=== PATIENT | female | born 1945 | race Caucasian/White ===

== ENCOUNTER → 2017-03-12 | Outpatient (CLI) | payer OTHER ==
[~2017-03-12] MED LIST: ACET-1311 PO; ALBUAER19 INH; AMB5 PO; ATV5 PO; CHOL100010 PO; DIGO0.122 PO; FRS/40 PO; METO100T14 PO; PANT40TA PO; POTA-335 PO; SYN25 PO; WARF2TAB PO
[2017-03-12 17:30] LABS: BASO % 0.8 %; BASO ABS # 0.05 K/uL (0-0.2); COMPLETE YES; EOS % 2.8 %; HEMATOCRIT 44.4 % (37-47); IG% 0.2 %; LYMPH % 21.3 %; LYMPH ABS # 1.39 K/uL (1.2-3.4); MEAN CELL VOLUME 86.5 fL (80-100); MEAN CORPUSCULAR HEMOGLOBIN 28.1 pg (25-34); MEAN CORPUSCULAR HGB CONC 32.4 g/dl (32-36); MEAN PLATELET VOLUME 10.4 fL (7.4-10.4); MONO % 12.3 %; NEUT % 62.6 %; PLATELET COUNT 182 K/uL (130-400); RED BLOOD COUNT 5.13 M/uL (4.2-5.4); WHITE BLOOD COUNT 6.52 K/uL (4.8-10.8)
[2017-03-12 17:45] LABS: ALT/SGPT 19 U/L (12-78); BLOOD UREA NITROGEN 14 mg/dl (7-18); BUN/CREATININE RATIO 14.5 (10-20); CALCIUM 9.6 mg/dl (8.5-10.1); CARBON DIOXIDE 30 mmol/L (21-32); CHLORIDE 102 mmol/L (98-107); CHOLESTEROL 184 mg/dl (0-200); CREATININE 0.97 mg/dl (0.60-1.20); GLUCOSE 115 mg/dl (70-99); SODIUM 137 mmol/L (136-145); TRIGLYCERIDES 146 mg/dl (0-150); VERY LOW DENSITY LIPOPROT CALC 29 mg/dl
[2017-03-12 17:55] LABS: ALB/GLOB RATIO 1.1 (0.9-2); ALKALINE PHOSPHATASE 65 U/L (45-117); AST/SGOT 24 U/L (15-37); CHOLESTEROL/HDL RATIO 3.5; HDL CHOLESTEROL 52 mg/dl; LDL CHOLESTEROL CALCULATED 103 mg/dl
== END | disposition home or self-care (01) ==
LOC: C.LABBFT 11:44
PROVIDERS: ATTEND Internal Medicine
DX: Z00.00 Encounter for general adult medical examination without abnormal findings (principal); I10 Essential (primary) hypertension; E78.5 Hyperlipidemia, unspecified; E03.9 Hypothyroidism, unspecified

== ENCOUNTER → 2017-06-23 | Outpatient (CLI) | payer OTHER ==
--- NOTE | 2017-06-23 18:19 | DIAGNOSTIC IMAGING REPORT ---
RIGHT TIBIA AND FIBULA 2 VIEWS CLINICAL HISTORY: Right leg pain. Fall. FINDINGS: AP and crosstable lateral views of the right tibia and fibula are obtained. No prior studies are available for comparison at the time of dictation. The skeletal structures are osteopenic. There is no radiographic evidence of right tibial or fibular fracture. The knee and ankle joints are grossly maintained. Mild proximal pretibial soft tissue edema is noted. Small phleboliths are noted in the marquis. IMPRESSION: Soft tissue swelling with no radiographic evidence of right tibial or fibular fracture. Electronically signed by: Emiliano Olmstead M.D. 06/23/2017 6:17 PM Dictated Date/Time: 06/23/2017 6:16 PM
--- NOTE | 2017-06-23 18:20 | DIAGNOSTIC IMAGING REPORT ---
RIGHT KNEE 3 VIEWS CLINICAL HISTORY: Right knee injury. FINDINGS: AP, crosstable lateral, and sunrise views of the right knee are obtained. No prior studies are available for comparison at the time of dictation. The skeletal structures are osteopenic. There is no radiographic evidence of fracture. Mild tricompartmental degenerative joint space narrowing is noted, greatest in the medial and patellofemoral compartments. There are small patellar enthesophytes and marginal osteophytes. A small joint effusion is identified. Prepatellar soft tissue edema is noted. IMPRESSION: 1. Mild soft tissue swelling and small joint effusion. No fracture is seen. 2. Osteopenia and degenerative change as above. Electronically signed by: Emiliano Olmstead M.D. 06/23/2017 6:19 PM Dictated Date/Time: 06/23/2017 6:17 PM
== END | disposition home or self-care (01) ==
LOC: C.RAD 17:37
PROVIDERS: ATTEND Internal Medicine
DX: M79.604 Pain in right leg (principal); Z91.81 History of falling; S89.91XA Unspecified injury of right lower leg, initial encounter; X58.XXXA Exposure to other specified factors, initial encounter; M25.461 Effusion, right knee; M85.88 Other specified disorders of bone density and structure, other site; M17.11 Unilateral primary osteoarthritis, right knee

== ENCOUNTER 2022-07-05 09:07 | Observation (INO) ==
--- NOTE | 2022-05-24 14:21 | PAT Medication Instructions ---
Medication Instructions Date of Service May 24, 2022 Home Medications Medication Instructions Recorded promethazine 25 mg tablet 25 mg PO TID PRN nausea and 12/04/20 vomiting #30 tabs [id number]-vwgdzmcb See Rx Instructions PO Q8H PRN 12/14/20 50 mg-300 mg-40 mg capsule pain #10 Tabs (Fioricet) albuterol sulfate 90 mcg/actuation 2 puff inhalation Q4H PRN 01/23/21 aerosol inhaler (Ventolin HFA) shortness of breath #8.5 grams benzonatate 100 mg capsule 100 mg PO HS PRN cough #90 caps 01/23/21 (Tessalon Perlrufina) metoprolol tartrate 50 mg tablet 50 mg PO BID #180 tabs 06/18/21 pantoprazole 40 mg tablet,delayed 40 mg PO QAM #90 tabs 09/04/21 release levothyroxine 25 mcg tablet 25 mcg PO QAM #90 tabs 09/14/21 alendronate 70 mg tablet (Fosamax) 70 mg PO WEEKLY #12 tabs 10/08/21 diltiazem HCl 240 mg 240 mg PO QAM #90 caps 11/23/21 capsule,extended release 24 hr (Cartia XT) zolpidem 10 mg tablet 10 mg PO HS PRN insomnia #30 tabs 02/06/22 topiramate 50 mg tablet 50 mg PO HS #90 tabs 02/13/22 diclofenac sodium 1 % topical gel 4 g topical QID #100 grams 02/27/22 warfarin 2 mg tablet 2 mg PO DAILY #100 tabs 04/11/22 Medications aspirin 81 mg tablet,delayed release 81 mg PO QAM cholecalciferol (vitamin D3) 25 mcg (1,000 unit) capsule 1,000 units PO QAM estradiol 0.01% (0.1 mg/gram) vaginal cream (Estrace) 1 g vaginal 2XWK PRN promethazine 25 mg tablet 25 mg PO TID PRN nausea and vomiting giqeqjkqww-igvijprfqzmgz-vqymvlxp 50 mg-300 mg-40 mg capsule (Fioricet) See Rx Instructions PO Q8H PRN pain albuterol sulfate 90 mcg/actuation aerosol inhaler (Ventolin HFA) 2 puff inhalation Q4H PRN shortness of breath benzonatate 100 mg capsule (Tessalon Perles) 100 mg PO HS PRN cough metoprolol tartrate 50 mg tablet 50 mg PO BID pantoprazole 40 mg tablet,delayed release 40 mg PO QAM levothyroxine 25 mcg tablet 25 mcg PO QAM alendronate 70 mg tablet (Fosamax) 70 mg PO WEEKLY diltiazem HCl 240 mg capsule,extended release 24 hr (Cartia XT) 240 mg PO QAM zolpidem 10 mg tablet 10 mg PO HS PRN insomnia topiramate 50 mg tablet 50 mg PO HS diclofenac sodium 1 % topical gel 4 g topical QID warfarin 2 mg tablet 2 mg PO ZULEYKA escitalopram oxalate 5 mg tablet 5 mg PO QAM fluticasone propionate 50 mcg/actuation nasal spray,suspension (Flonase Allergy Relief) 1 spray intranasal BID PRN Nasal Congestion furosemide 40 mg tablet 60 mg PO QAM mirabegron 50 mg tablet,extended release 24 hr (Myrbetriq) 50 mg PO QAM potassium chloride 20 mEq tablet,extended release 20 meq PO QAM pseudoephedrine HCl 120 mg tablet,extended release (Sudafed 12 Hour) 120 mg PO BID PRN Nasal Congestion Continue as directed estradiol 0.01% (0.1 mg/gram) vaginal cream (Estrace) 1 g vaginal 2XWK PRN fluticasone propionate 50 mcg/actuation nasal spray,suspension (Flonase Allergy Relief) 1 spray intranasal BID PRN Nasal Congestion albuterol sulfate 90 mcg/actuation aerosol inhaler (Ventolin HFA) 2 puff inhalation Q4H PRN shortness of breath alendronate 70 mg tablet (Fosamax) 70 mg PO WEEKLY ASK your prescriber and surgeon aspirin 81 mg tablet,delayed release 81 mg PO QAM warfarin 2 mg tablet 2 mg PO DAILY DO NOT take the morning of surgery cholecalciferol (vitamin D3) 25 mcg (1,000 unit) capsule 1,000 units PO QAM potassium chloride 20 mEq tablet,extended release 20 meq PO QAM furosemide 40 mg tablet 60 mg PO QAM promethazine 25 mg tablet 25 mg PO TID PRN nausea and vomiting diclofenac sodium 1 % topical gel 4 g topical QID (do not use AM of surgery) benzonatate 100 mg capsule (Tessalon Perles) 100 mg PO HS PRN cough mirabegron 50 mg tablet,extended release 24 hr (Myrbetriq) 50 mg PO QAM pseudoephedrine HCl 120 mg tablet,extended release (Sudafed 12 Hour) 120 mg PO BID PRN Nasal Congestion Take morning of surgery With a small sip of water, OTHERWISE NOTHING TO EAT OR DRINK AFTER MIDNIGHT: metoprolol tartrate 50 mg tablet 50 mg PO BID pantoprazole 40 mg tablet,delayed release 40 mg PO QAM escitalopram oxalate 5 mg tablet 5 mg PO QAM levothyroxine 25 mcg tablet 25 mcg PO QAM diltiazem HCl 240 mg capsule,extended release 24 hr (Cartia XT) 240 mg PO QAM icapvibrlx-nxgncyvbscwea-nhlfgebi 50 mg-300 mg-40 mg capsule (Fioricet) See Rx Instructions PO Q8H PRN pain (if needed) albuterol sulfate 90 mcg/actuation aerosol inhaler (Ventolin HFA) 2 puff inhalation Q4H PRN shortness of breath (use if needed AM of surgery and bring to hospital) Take evening before surgery metoprolol tartrate 50 mg tablet 50 mg PO BID zolpidem 10 mg tablet 10 mg PO HS PRN insomnia topiramate 50 mg tablet 50 mg PO HS promethazine 25 mg tablet 25 mg PO TID PRN nausea and vomiting (if needed) benzonatate 100 mg capsule (Tessalon Perles) 100 mg PO HS PRN cough (if needed) pseudoephedrine HCl 120 mg tablet,extended release (Sudafed 12 Hour) 120 mg PO BID PRN Nasal Congestion (if needed) Other Notes If you have any questions please call us at [phone] or [phone] or [phone] or [phone]
--- NOTE | 2022-06-11 14:28 | Anesthesiology Consultation ---
Date of Service June 11, 2022 Assessment & Plan (1) Encounter for pre-operative examination: - Check coags AM DOS (warfarin instructions per surgeon/prescriber) - COVID screening: Per assessment on 06/11: No known COVID-19 positive contacts or current COVID-19 related symptoms. Travel screen negative. Patient vaccinated. At surgeon discretion if preop Covid testing being done. - Outpatient joint assessment: Pt currently scheduled for inpatient pathway. If surgeon requests review for outpatient joint pathway, patient is not recommended candidate for outpatient joint program from anesthesia standpoint. - Cardiology office visit (12/24/21): "Atrial fibrillation:Plan:--Persistent, asymptomatic, well rate controlled, last event monitor 09/2018 2. History of Rheumatic heart disease status post mechanical AVR, MVR-- functioning appropriately on most recent TTE 2021, on anticoagulation (INR 2.5-3.5) 3. RBBB 4. Hypertension-- well controlled on current regimen. 5. Chronic diastolic heart failure.. Doing well from a cardiac standpoint. Active without significant chest pain or limiting dyspnea. On exam today no signs of heart failure or new PVD. Remains in rate controlled atrial fibrillation. Aortic, mitral mechanical valves well-functioning on most recent echo 04/2021.. Plan to continue anticoagulation with warfarin followed by our office. Continue ASA. Continue diltiazem, metoprolol and current maintenance Lasix 40 mg daily (60mg for increased edema). Follow-up in 1 year" Chart Review Chart Review: Acceptable Risk for Surgery (pending evaluation AM DOS) and Patient seen in Pre Admission Testing Teaching & Discussion Pre-Anesthesia Teaching/Discussion Notes: Instructed NPO after midnight before surgery,except medications with 15 cc of water. Medication instructions provided according to the PAT guidelines. History Surgery Operation Date: 07/05/22 07:00 Proposed Procedures p Right Total Knee Arthroplasty - Fredo Stringer, Height/Weight Height: 5 ft 4 in Weight: 76.9 kg Allergies Allergy/AdvReac Type Severity Reaction Status Date / Time trazodone AdvReac Intermediate Nightmares Verified 06/11/22 14:34 Medications Home Medications Medication Instructions Recorded Confirmed Last Taken aspirin 81 mg tablet,delayed 81 mg PO QAM 09/08/20 05/24/22 09/19/20 release cholecalciferol (vitamin D3) 25 1,000 units PO QAM 09/08/20 05/24/22 09/19/20 mcg (1,000 unit) capsule estradiol 0.01% (0.1 mg/gram) 1 g vaginal 2XWK PRN Vaginal 09/08/20 05/24/22 Unknown vaginal cream (Estrace) Dryness promethazine 25 mg tablet 25 mg PO TID PRN nausea and 12/04/20 05/24/22 Unknown vomiting #30 tabs geiobybdir-hlerzcnvcyuba-dssjuoyh See Rx Instructions PO Q8H PRN 12/14/20 05/24/22 Unknown 50 mg-300 mg-40 mg capsule pain #10 Tabs (Fioricet) albuterol sulfate 90 mcg/actuation 2 puff inhalation Q4H PRN 01/23/21 05/24/22 Unknown aerosol inhaler (Ventolin HFA) shortness of breath #8.5 grams benzonatate 100 mg capsule 100 mg PO HS PRN cough #90 caps 01/23/21 05/24/22 Unknown (Brittani Felix) metoprolol tartrate 50 mg tablet 50 mg PO BID #180 tabs 06/18/21 05/24/22 Unknown levothyroxine 25 mcg tablet 25 mcg PO QAM #90 tabs 09/14/21 05/24/22 Unknown alendronate 70 mg tablet (Fosamax) 70 mg PO WEEKLY #12 tabs 10/08/21 05/24/22 Unknown diltiazem HCl 240 mg 240 mg PO QAM #90 caps 11/23/21 05/24/22 Unknown capsule,extended release 24 hr (Cartia XT) zolpidem 10 mg tablet 10 mg PO HS PRN insomnia #30 tabs 02/06/22 05/24/22 Unknown topiramate 50 mg tablet 50 mg PO HS #90 tabs 02/13/22 05/24/22 Unknown diclofenac sodium 1 % topical gel 4 g topical QID #100 grams 02/27/22 05/24/22 Unknown warfarin 2 mg tablet 2 mg PO DAILY #100 tabs 04/11/22 06/04/22 Unknown escitalopram oxalate 5 mg tablet 5 mg PO QAM 05/24/22 05/24/22 Unknown fluticasone propionate 50 1 spray intranasal BID PRN Nasal 05/24/22 05/24/22 U nknown mcg/actuation nasal Congestion spray,suspension (Flonase Allergy Relief) furosemide 40 mg tablet 60 mg PO QAM 05/24/22 05/24/22 Unknown mirabegron 50 mg tablet,extended 50 mg PO QAM 05/24/22 05/24/22 Unknown release 24 hr (Myrbetriq) potassium chloride 20 mEq 20 meq PO QAM 05/24/22 05/24/22 Unknown tablet,extended release pseudoephedrine HCl 120 mg 120 mg PO BID PRN Nasal Congestion 05/24/22 05/24/22 Unknown tablet,extended release (Sudafed 12 Hour) pantoprazole 40 mg tablet,delayed 40 mg PO DAILY #90 tabs 05/28/22 Unknown release Past Medical History Medical History Atrial fibrillation Follows with Dr. Diaz Chronic migraine Chronic sinusitis Depression Diastolic heart failure Genitourinary syndrome of menopause GERD (gastroesophageal reflux disease) History of COVID-19 02/2021- mild symptoms, resolved Hyperlipidemia Hypertension Hypothyroidism Impaired fasting glucose Insomnia Mixed incontinence urge and stress Obstructive sleep apnea Osteoarthritis of right knee Osteoporosis Peripheral neuropathy Rheumatic heart disease s/p [facility] AVR/MVR (2011) Exercise / Class Metabolic Activity III < 4 Walking/Shop/Light housework Past Family History Family History Mother Atrial fibrillation Father Myocardial infarction Grandfather (Maternal) Colorectal cancer Sister Lung cancer Other No family history of adverse response to anesthesia Denies family history of Ovarian cancer Prostate cancer Diabetes Breast cancer Past Surgical History Surgical History History of bilateral tubal ligation History of cardiac cath 2011 > no stents History of cardioversion x2 History of cataract surgery B/L History of colonoscopy History of esophagogastroduodenoscopy (EGD) Hx of hemorrhoidectomy S/P aortic valve replacement (2011) S/P MVR (mitral valve replacement) (2011) Status post arthroscopic partial medial meniscectomy right knee Past Anesthesia History No Hx of Anesthesia Complications and No Family Hx of Anesthesia Complications History of PONV No Hx of PONV and No Hx of Motion Sickness Social History Smoking Status: Never smoker Do You Dip or Chew Tobacco: No Hx Alcohol Use: No Hx Substance Use: No substance use type: does not use Review of Systems Patient denies chest pain, shortness of breath, fever, chills, cough, wheezing, palpitations. Physical Exam Vital Signs VITALS BP 112/51 P 53 TEMP 97.6 SP02 95%RA RESP 18 PHYSICAL Full cervical extension range of motion. Full TMJ range of motion. TMD 3.5 finger breaths Mallampati Score 1 Dentition: edentulous, upper plate Lungs: clear throughout to auscultation Cardiac: regular rate and rhythm, + click Spine: + scoliosis Carotid arteries: negative bruit Extremities: no edema Lab Results Anesthesia Preop Results Results Anesthesia Widget: WBC 6.59 K/ul (4.8-10.8) 06/11/22 Hgb 14.6 g/dl (12.0-16.0) 06/11/22 Hct 44.8 % (37.0-47.0) 06/11/22 Plt 228 K/uL (130-400) 06/11/22 Na 137 mmol/L (136-145) 06/11/22 K 4.2 mmol/L (3.5-5.1) 06/11/22 Cl 104 mmol/L (98-107) 06/11/22 CO2 25 mmol/L (21-32) 06/11/22 BUN 14 mg/dl (6-23) 06/11/22 Creat 1.25 mg/dl (0.6-1.2) H 06/11/22 Glucose Level 117 mg/dl (70-99(Fasting)) H 06/11/22 PT 30.3 Seconds (9.0-12.0) H 06/11/22 PTT 40.7 Seconds (21.0-31.0) H 06/11/22 INR 3.0 (0.9-1.1) H 06/11/22 Blood Type A Negative 06/11/22 Antibody Screen NEGATIVE 06/11/22 Testing Electrocardiogram Date: 06/11/22 A fib with slow ventricular response at 45bpm. RBBB. Chest X-Ray Date: 06/11/22 FINDINGS: Median sternotomy wires are unchanged. Mitral and aortic valvular prostheses noted. Calcified aortic knob is seen. The lungs are clear. No evidence of pleural effusion or pneumothorax. IMPRESSION: No acute chest disease. Echocardiogram Date: 04/29/21 EF 50-55%. No regional motion abnormality. Mildly dilated RV with borderline reduced function. Mechanical AV with expected transvalvular gradients. Trace AI. Mechanical MV with expected transvalvular gradients. Trace MR. Compared with prior study 11/09/2018, no significant changes per report. COVID-19 Risk Screen Screening Information COVID-19 Screen Date: 06/11/22 Exposure 21 Days Family/Household +COVID Last 21 Days: No Exposure 10 Days Any COVID Exposure Last 10 Days: No Symptoms Last 10 Days Experienced COVID Sx Last 10 Days: No + COVID 0-90 Days COVID + in Last 0-90 Days: No
[~2022-07-05 09:07] MED LIST changes: -ACET-1311 PO; +ACETAMINOPHEN 500 MG TAB PO SCH; -ALBUAER19 INH; -AMB5 PO; -ATV5 PO; +BUPIVACAINE 0.5 % 5 MG/1 ML PF 10ML VIAL ONE; -CHOL100010 PO; -DIGO0.122 PO; +EPINEPHrine INJ 1 MG/ML AMP ONE; +FAMOTIDINE 20 MG TAB PO SCH; -FRS/40 PO; +GABAPENTIN 300 MG CAP PO SCH; +LR 15ML/HR IV SCH; +LR 60ML/HR IV SCH; -METO100T14 PO; +ORTHO JOINT MIX INFIL SCH; -PANT40TA PO; -POTA-335 PO; +ROPIVACAINE 0.5% 5 MG/ML 30 ML VIAL ONE; -SYN25 PO; +TRANEXAMIC ACID 1,000 MG **IV Intra-op IV SCH; +TRANEXAMIC ACID 1,000 MG **IV Pre-op IV SCH; -WARF2TAB PO; +ceFAZolin 2000MG 2,000 MG/15 ML SYR IV SCH; +dexAMETHasone 4 MG TAB PO SCH
[2022-07-05] MEDS ORDERED: fentaNYL citrate PF 100 MCG/2 ML VIAL ONE (10:35)
[2022-07-05] MEDS ORDERED: MIDAZOLAM HCL 1 MG/ML 2ML VIAL ONE (10:35)
[2022-07-05] MEDS ORDERED: PROPOFOL IV EMULSION 10 MG/ML 20 ML VIAL IV ONE ×3 (10:36)
--- NOTE | 2022-07-05 10:36 | History & Physical Bridge Note ---
Date of Service July 05, 2022 History & Physical Bridge Note I have examined the patient, reviewed the History & Physical and in the interval since the performance of the History & Physical I have noted the following changes of clinical significance: no changes noted
[2022-07-05 10:53] LABS: INR 1.2 (0.9-1.1); Partial Thromboplastin Time 28.7 Seconds (21.0-31.0); Prothrombin Time 12.4 Seconds (9.0-12.0)
[2022-07-05] MEDS ORDERED: ORTHO JOINT ANESTHETIC ONE (11:10)
[2022-07-05] MEDS ORDERED: LIDOCAINE 2% MPF LOCAL 5 ML VIAL ONE (11:51)
[2022-07-05] MEDS ORDERED: ePHEDrine sulfate 50 MG/ML AMP IV PRN (11:58)
[2022-07-05] MEDS ORDERED: ATROPINE SULFATE 0.1 MG/ML 10ML SYR IV PRN (11:58)
[2022-07-05] MEDS ORDERED: fentaNYL citrate PF 100 MCG/2 ML VIAL IV PRN (11:58)
[2022-07-05] MEDS ORDERED: HYDROmorphone INJ 1 MG/ML SYRINGE IV PRN (11:58)
[2022-07-05] MEDS ORDERED: ONDANSETRON INJ 2 MG/ML 2 ML VIAL IV PRN ×2 (11:58→14:43)
[2022-07-05] MEDS ORDERED: ePHEDrine sulfate 50 MG/ML AMP ONE ×2 (12:58)
--- NOTE | 2022-07-05 13:01 | Operative Report ---
PG Post Operative Report Pre & Post Diagnosis Operation Date: 07/05/22 11:45 Pre-Op Diagnosis: Right Knee Degenerative Joint Disease Post-Op Diagnosis: Right Knee Degenerative Joint Disease I identified the patient and participated in the time-out.: Yes Procedure Operation Date: 07/05/22 11:45 Actual Procedures p Right Total Knee Arthroplasty(Right) - Fredo Stringer DO Surgeon Fredo Stringer DO Reiki Practitioner Arben Shelley PA-C Estimated Blood Loss 30 Findings Consistent with Post-Op Diagnosis Specimens Right femoral and tibial bone Description of Procedure Implants used: I used a Gonzales Persona total knee arthroplasty system with a size 6 narrow femur, D tibia, 28 oval patella, and a size 11 medial congruent polyethylene bearing. All components were cemented in place with Biomet cement. Ann arrived [facility] for the above procedure. She was seen in the preoperative holding area and the operative extremity was identified and signed. She was given a preoperative antibiotic, TXA, a spinal anesthetic and an adductor nerve block. She was taken back to the operating room and laid on the table in supine position. She was given basic sedation. The operative knee was then prepped and draped in sterile fashion. A timeout was done, and the patient and the operative extremity was properly identified. A midline incision was made directly over the patella. Dissection was taken down to the extensor mechanism. A midvastus arthrotomy was used. The medial retinaculum was released and the fat pad was mostly excised. The knee was flexed and the ACL, PCL, and meniscus were removed. A drill was sent down the center of the femoral canal followed by an intramedullary elvis. Off that elvis a distal femoral cutting block was placed. 9 mm was resected off the distal femur at 5 of valgus. A posterior referencing AP sizing guide was then placed on the distal femur. The femur measured to be a size 6. 2 drill holes were placed in 3 of external rotation. A 4-in-1 cutting block was then impacted into place. Anterior, posterior, and chamfer cuts were then made. The proximal tibia was then exposed. An external tibial alignment guide was placed. A tibial cut guide was then anchored in place and the proximal tibia was then resected. The posterior aspect of the knee was then opened up and any additional meniscus fragments and osteophytes were removed. The tibia measured to be a size D. The tibial plate was then placed in the appropriate rotation and the tibia was drilled and punched. Trial components were then placed. I used a size 11 medial congruent polyethylene insert. The knee was brought through a full range of motion and felt to be stable. The peg holes for the femoral component were then drilled. The patella was then everted and 9 mm was resected off the posterior aspect of the patella. The patella measured to be a size 28 oval. 3 peg holes were then drilled. A trial patella was placed. The knee was once again brought through a full range of motion and felt to be stable. Trial components were then removed. The surrounding soft tissues were injected with 100 cc of an orthopedic pain control cocktail. All components were then cemented into place with Biomet cement. The final polyethylene insert was then snapped into place. Once cement was dry the tourniquet was deflated. Hemostasis was obtained. A dilute betadyne lavage was then done for 3 minutes. The joint was then irrigated with normal saline solution. The midvastus arth rotomy was then closed with #1 Vicryl suture. The skin was closed with 2-0 Vicryl, 3-0V lock suture, and deedee. A soft compressive dressing was placed. She was then transferred to a hospital bed and taken to the postanesthesia care unit in stable condition. She tolerated the procedure well. Arben Shelley PA-C, was present for the entire procedure. He was critical for patient positioning, prepping, draping, retraction exposure, wound closure and application of sterile dressing. I attest to the content of the Intraoperative Record and any orders documented therein. Any exceptions are noted below.
[2022-07-05] MEDS ORDERED: ONDANSETRON INJ 2 MG/ML 2 ML VIAL ONE (13:17)
--- NOTE | 2022-07-05 13:57 | XRay Report ---
XR knee RT 1 or 2V routine CLINICAL HISTORY: Surgical Post Op COMPARISON: Knee radiographs December 26, 2021. FINDINGS: Alignment of the total right knee arthroplasty is anatomic. There is no periprosthetic fra cture or unexpected radiopaque foreign body. There are skin deedee. IMPRESSION: Expected findings following total right knee arthroplasty. ACT 112: Negative or not required by law. Electronically signed by: Octaviano Ford M.D. 07/05/2022 1:56 PM
--- NOTE | 2022-07-05 14:04 | Anesthesiology Progress Note ---
Date of Service July 05, 2022 Anesthesia Post Procedure Vital Signs Vital Signs: Temp Pulse Pulse Resp BP Pulse Ox O2 Del Method 07/05/22 14:00 73 19 115/63 92 Room Air 07/05/22 13:50 68 19 108/49 L 95 Room Air 07/05/22 13:40 76 17 103/65 96 Oxymask 07/05/22 13:33 97.0 F L 72 21 102/50 L 96 Oxymask 07/05/22 10:10 97.9 F 53 L 20 116/65 97 Room Air O2 Flow Rate 07/05/22 14:00 07/05/22 13:50 07/05/22 13:40 5 07/05/22 13:33 5 07/05/22 10:10 Transfer of Care Handoff Completed per policy Notes Mental Status: alert / awake / arousable and participated in evaluation Patient Amnestic to Procedure: Yes Nausea / Vomiting: adequately controlled Pain: adequately controlled Airway Patency, RR, SpO2: stable & adequate BP & HR: stable & adequate Hydration State: stable & adequate Anesthetic Complications: no major complications apparent and Pt Satisfied with anesthetic care
[2022-07-05] MEDS ORDERED: ALBUTEROL HFA 8 GM INHALER INH PRN (14:43)
[2022-07-05] MEDS ORDERED: ORTHO WARFARIN NOMOGRAM SCH (14:43)
[2022-07-05] MEDS ORDERED: NALOXONE HCL 0.4 MG/1 ML VIAL/CARP IV PRN (14:43)
[2022-07-05] MEDS ORDERED: oxyCODONE HCL IR 5 MG TAB (IMMEDIATE RELEASE) PO PRN (14:43)
[2022-07-05] MEDS ORDERED: PROMETHAZINE HCL 25 MG TAB PO PRN (14:43)
[2022-07-05] MEDS ORDERED: MAGNESIUM HYDROXIDE SUSP 30 ML UDC PO PRN (14:43)
[2022-07-05] MEDS ORDERED: METOCLOPRAMIDE HCL INJ 5 MG/ML 2 ML VIAL IV PRN (14:43)
[2022-07-05] MEDS ORDERED: bisacodyL 10 MG SUPP PR PRN (14:43)
[2022-07-05] MEDS ORDERED: ZOLPIDEM TARTRATE 10 MG TAB PO PRN (14:43)
[2022-07-05] MEDS: SODIUM CHLORIDE 0.9% 1000ML 1,000 ML IV SCH (14:54)
[2022-07-05] MEDS: KETOROLAC TROMETHAMINE 15 MG/ML VIAL IV SCH ×2 (15:33→21:06)
[2022-07-05] MEDS ORDERED: WARFARIN SOD 5 MG TAB PO SCH (16:00)
[2022-07-05] MEDS: ceFAZolin 2000MG 2,000 MG/15 ML SYR IV SCH (19:22)
[2022-07-05] MEDS ORDERED: TOPIRAMATE 50 MG TAB PO SCH (21:00)
[2022-07-05] MEDS ORDERED: SENNA 8.6 MG TAB PO SCH (21:00)
[2022-07-05] MEDS: METOPROLOL TARTRATE 50 MG TAB PO SCH (21:06)
[2022-07-05] MEDS: DOCUSATE SODIUM 100 MG CAP PO SCH (21:06)
[2022-07-06] MEDS: SODIUM CHLORIDE 0.9% 1000ML 1,000 ML IV SCH (00:54)
[2022-07-06] MEDS: ceFAZolin 2000MG 2,000 MG/15 ML SYR IV SCH (03:35)
[2022-07-06] MEDS: KETOROLAC TROMETHAMINE 15 MG/ML VIAL IV SCH ×2 (03:35→07:57)
[2022-07-06] MEDS: DOCUSATE SODIUM 100 MG CAP PO SCH (07:53)
[2022-07-06] MEDS: METOPROLOL TARTRATE 50 MG TAB PO SCH (07:55)
--- NOTE | 2022-07-06 07:58 | Orthopedic Progress Note ---
Date of Service July 06, 2022 Assessment & Plan (1) Status post right knee replacement: Overall she is doing fairly well. She is not having much pain in the right knee. She will be seen by physical therapy today for ambulation and range of motion exercises. She is on Coumadin and Lovenox for DVT prophylaxis. She can be discharged home later today. She will follow-up orthopedics in 2 weeks. Subjective Ann was seen and examined at bedside this morning. Overall she is doing fairly well. She is not having much pain in the right knee. She has been up and ambulating to the bathroom. She has no complaints.. Review of Systems All systems reviewed & are unremarkable except as noted in HPI & below. Physical Exam On physical examination of the right knee, the dressing is clean and dry. Her leg is out full extension. She has active dorsiflexion plantarflexion of her right ankle.. Results & Data Results & Data Laboratory Results . Diagnostic Findings Postoperative x-rays of the right knee show the prosthesis to be in anatomic alignment without any evidence of fracture, desiccation, or loosening. PG Care Time/CCT Total # of Minutes Spent Total Time Spent with Patient: Total time spent is greater than 50% in coordination of care (as documented) at patient's floor/unit and/or counseling patient: Coding Level of Care Code 04512 Post Operative Follow-Up Diagnoses Status post right knee replacement Z96.651
--- NOTE | 2022-07-06 07:59 | Discharge Summary ---
Date of Service July 06, 2022 Principal Diagnosis Same as "Discharge Diagnosis" noted below under Discharge Instructions. Discharge Exam On physical examination of the right knee, the dressing is clean and dry. Her leg is out full extension. She has active dorsiflexion plantarflexion of her right ankle.. Discharge Data Procedures Performed Operation Date: 07/05/22 11:45 Actual Procedures p Right Total Knee Arthroplasty(Right) - Fredo Stringer DO Ordered Studies 07/05/22 05:00 US - OR guided needle placemen Routine Hospital Course (1) Status post right knee replacement: On July 05, 2022 Ann arrived at [facility] and underwent a right knee replacement without complication. She had general anesthetic. Postoperatively she was started on Coumadin and Lovenox for DVT prophylaxis. She was discharged to the general orthopedic floors. Her hospital course was uneventful. On postop day #1, her vital signs were stable and her pain was well controlled. She was able to precipitate well with physical therapy doing ambulation and range of motion exercises. She was then discharged home. She will follow-up with orthopedics in 2 weeks. PG Care Time/CCT Total # of Minutes Spent Total Time Spent with Patient: Total time spent is greater than 50% in coordination of care (as documented) at patient's floor/unit and/or counseling patient: Discharge Plan Discharge Items Patient Disposition: Home - Home Health Services Reason For Visit: POST OP Discharge Diagnosis: Right knee replacement Activity: As commented below Non-emergency contact: Surgeon Call non-emergency contact if: your wound has increased redness and your wound has increased drainage Follow-up/Referrals: Mickie Ford MD [Primary Care Provider] - Diet: Regular Addtl Attending Provider Instructions: Activity and Therapy Recommendations: * If you are using [facility] then therapy will be provided at your home until they feel you have accomplished all of your goals. * If you are using [facility] then Physical Therapy will be provided until they feel you are ready to start Outpatient Physical Therapy. * If you are not using home therapy then Outpatient Physical Therapy should start about 3-5 days from your day of surgery. Therapy will last about 6-10 weeks * It is important not to put a pillow under your knee when you are relaxing or sleeping. It is just as important to make sure you are getting your knee perfectly straight as it is to regain your knee bend. * You were shown a series of exercises in the hospital. Do these exercises three times each day including the exercises you were shown in physical therapy. * Get up and walk several times each day. For the first four weeks, try not to stand or walk for more than one hour at a time. If you do stand or walk for more than one hour, you will not hurt anything, but your leg will likely swell. * As you feel comfortable, you may change from the walker or crutches to a cane and then to independent walking. Medications: * Narcotic You will likely be sent home from the hospital with a prescription for the narcotic pain medication that worked best throughout your stay. * Take your Lovenox and Coumadin as prescribed. * Other medications may be prescribed for specific circumstances. If you have any questions, please call the office at . * Resume previous home medications unless otherwise instructed TEDs/Elastic Stockings: The white elastic stockings help limit swelling and prevent blood clots from forming in your legs.~ The more you wear them, the more they work. Wear them for six weeks. Dressing Care: The dressing can be changed after physical therapy on postop day #1. Daily dry dressing changes for a few days, especially if the incision is still draining some. If the incision is not draining then you may leave the deedee open to air. If there is a little bit of drainage or if the deedee are getting stuck on your clothing then cover the incision with a dry dressing. The deedee will be removed at your 2 week follow-up appointment. Showering: You may shower 5 days from the day of surgery as long as the incision is no longer draining. You may shower with the deedee exposed. Let soapy water run over the deedee and pat them dry. Do not scrub or soak the incision. Things To Watch For: * Drainage from the incision site that occurs more than one week after your surgery. * Increased redness at the incision site. * Fever above 102 degrees Fahrenheit. * Unusual chest pain or shortness of breath. * Call [facility] at with any of the above problems Follow-Up Visit: Follow-up with Dr. Stringer's PA (Fredo Durant) 2-3 weeks after your day of surgery. He will remove your deedee and answer any questions. If you have any additional questions or concerns, Dr Stringer is usually in the office at the same time and will be available An appointment was probably scheduled when you signed-up for surgery in the office. If you have any questions call Office Instructions: More detailed instructions as well as Frequently Asked Questions were provided in a folder by our office when you signed-up for surgery. Please review these instructions when you get home. If you have any further questions or concerns, please feel free to call the office at [phone] Pending Studies at Discharge: No Stand-Alone Forms: My [facility] Medications and DC Order Prescriptions: New oxycodone-acetaminophen 5-325 mg tablet 1 tab PO Q6H PRN (Reason: pain) Qty: 30 0RF Continued [id number] [Fioricet] 50-300-40 mg capsule See Rx Instructions PO Q8H PRN (Reason: pain) Qty: 10 2RF Rx Instructions: 1 tab PO every 8 hours PRN; levothyroxine 25 mcg tablet 25 mcg PO QAM Qty: 90 3RF alendronate [Fosamax] 70 mg tablet 70 mg PO WEEKLY Qty: 12 3RF Patient Comments: takes on wednesdays diltiazem HCl [Cartia XT] 240 mg capsule,extended release 24hr 240 mg PO QAM Qty: 90 3RF zolpidem 10 mg tablet 10 mg PO HS PRN (Reason: insomnia) Qty: 30 3RF topiramate 50 mg tablet 50 mg PO HS Qty: 90 3RF warfarin 2 mg tablet 2 mg PO DAILY Qty: 100 3RF Protocol: Dose Management Condition: Friday (Week One) Dose/Route: 0 mg Instruction: 0 tablets Condition: Friday Dose/Route: 0 mg Instruction: 0 tablets Condition: Friday Dose/Route: 0 mg Instruction: 0 tablets Condition: Friday Dose/Route: 0 mg Instruction: 0 tablets Condition: Dose/Route: 0 mg Instruction: 0 tablets Condition: Friday Dose/Route: 0 mg Instruction: 0 tablets Condition: Friday Dose/Route: 4 mg Instruction: 2 x 2 mg tablets Condition: Friday (Week Two) Dose/Route: 4 mg Instruction: 2 x 2 mg tablets Condition: Friday Dose/Route: 2 mg Instruction: 1 x 2 mg tablet Condition: Friday Dose/Route: 3 mg Instruction: 1.5 x 2 mg tablets Condition: Friday Dose/Route: 2 mg Instruction: 1 x 2 mg tablet Condition: Dose/Route: 2 mg Instruction: 1 x 2 mg tablet Condition: Friday Dose/Route: 2 mg Instruction: 1 x 2 mg tablet Condition: Friday Dose/Route: 3 mg Instruction: 1.5 x 2 mg tablets Protocol Text: Adjustment Start Date: Friday07/02/22 INR Value: 1.9 INR Date: 07/02/22 pantoprazole 40 mg tablet,delayed release (DR/EC) 40 mg PO DAILY Qty: 90 3RF enoxaparin [Lovenox] 80 mg/0.8 mL syringe 80 mg subcut Q12H Qty: 8 1RF metoprolol tartrate 50 mg tablet 50 mg PO BID Qty: 180 3RF benzonatate [Tessalon Perles] 100 mg capsule 100 mg PO HS PRN (Reason: cough) Qty: 90 3RF albuterol sulfate [Ventolin HFA] 90 mcg/actuation HFA aerosol inhaler 2 puff INH Q4H PRN (Reason: shortness of breath) Qty: 8.5 3RF promethazine 25 mg tablet 25 mg PO TID PRN (Reason: nausea and vomiting) Qty: 30 1RF diclofenac sodium 1 % gel 4 g topical QID Qty: 100 2RF Rx Instructions: apply to single knee, ankle, foot; for foot includes sole/toes/top of foot aspirin 81 mg tablet,delayed release (DR/EC) 81 mg PO QAM estradiol [Estrace] 0.01 % (0.1 mg/gram) cream 1 g vaginal 2XWK PRN (Reason: Vaginal Dryness) Rx Instructions: 1 g vaginal twice weekly; cholecalciferol (vitamin D3) 1,000 unit capsule 1,000 units PO QAM furosemide 40 mg tablet 60 mg PO QAM pseudoephedrine HCl [Sudafed 12 Hour] 120 mg tablet extended release 120 mg PO BID PRN (Reason: Nasal Congestion) fluticasone propionate [Flonase Allergy Relief] 50 mcg/actuation spray,suspension 1 spray intranasal BID PRN (Reason: Nasal Congestion) Rx Instructions: administer into each nostril escitalopram oxalate 5 mg tablet 5 mg PO QAM Myrbetriq 50 mg tablet extended release 24 hr 50 mg PO QAM potassium chloride 20 mEq tablet extended release 20 meq PO QAM Admission Data Admit Date/Time: 07/05/22 13:35 Attending Provider: Fredo Stringer Admit Provider: Fredo Stringer Primary Care Provider: Mickie Ford
[2022-07-06] MEDS ORDERED: dexAMETHasone 4 MG TAB PO SCH (08:00)
[2022-07-06] MEDS ORDERED: ESCITALOPRAM OXALATE 10 MG TAB PO SCH (09:00)
[2022-07-06] MEDS ORDERED: ENOXAPARIN INJ 30 MG/0.3 ML SYR SQ SCH (09:00)
[2022-07-06] MEDS ORDERED: FUROSEMIDE 20 MG TAB PO SCH (09:00)
[2022-07-06] MEDS ORDERED: PANTOprazole 40 MG TAB PO SCH (09:00)
[2022-07-06] MEDS ORDERED: dilTIAZem HCL 240 MG CAPCR PO SCH (09:00)
[2022-07-06] MEDS ORDERED: MIRABEGRON ER 25 MG TAB PO SCH (09:00)
[2022-07-06] MEDS ORDERED: ASPIRIN 81 MG ECTAB PO SCH (09:00)
[2022-07-06] MEDS ORDERED: MULTIVITAMIN TAB PO SCH (09:00)
[2022-07-06] MEDS ORDERED: POTASSIUM CHLORIDE CRTAB 20 MEQ TABCR PO SCH (09:00)
[2022-07-06] MEDS ORDERED: LEVOTHYROXINE SODIUM 25 MCG TABLET PO SCH (09:00)
[2022-07-06] MEDS ORDERED: CHOLECALCIFEROL 1,000 UNITS 25 MCG TAB PO SCH (09:00)
== END 2022-07-06 14:23 | disposition home or self-care (01) ==
LOC: ASU 09:07 → 3E 09:07
DX: M65.9 Synovitis and tenosynovitis, unspecified; M17.11 Unilateral primary osteoarthritis, right knee; Z79.899 Other long term (current) drug therapy; Z79.890 Hormone replacement therapy; Z79.82 Long term (current) use of aspirin

== ENCOUNTER 2024-12-02 15:16 | Observation (INO) ==
[2024-12-02] MEDS: PANTOprazole 40 MG/10 ML SYR IV ONE (15:56)
--- NOTE | 2024-12-02 15:57 | Emergency Department Note ---
Impression & Plan LGI bleed, Colitis, Leukocytosis, Proctocolitis, Hypokalemia, Acute dehydration, Chronic anticoagulation ED Provider Note NAME: TAVARES GREEN AGE: 79 SEX: F : 1945 ARRIVES VIA: Walk-In INFORMANT: Patient, ED PROVIDER(S): Mustapha Serrano DO CHIEF COMPLAINT: rectal bleeding HPI: This is a 79-year-old female with the PMHx of pAfib and mechanical valve replacements on chronic anticoagulation with Warfarin, GERD, CHF, HTN, HLD, CARO, and hypothyroidism presenting to [facility] for further evaluation of rectal bleeding. Patient is accompanied by her who provide additional history. states that this has been ongoing over the last few days. He states that she was reluctant to report to the hospital. She states that she has weakness and fatigue. She feels lightheaded. She notes that she has right sided abdominal pain and mild nausea without emesis. She states that she has not had rectal bleeding like this before. She notes that she did miss her colonoscopy within the past two years. They deny fever or chills. No cough or congestion. Denies chest pain or palpitations. No shortness of breath. No urinary complaints. Patient denies recent changes in medications or OTC supplements. Patient offers no other complaints, today. ADDITIONAL HISTORY OBTAINED: Per HPI Chronic Medical/Social Conditions Affecting Care: Per HPI PAST MEDICAL HISTORY: See Below PAST SURGICAL HISTORY: See Below FAMILY HISTORY: See Below SOCIAL HISTORY: See Below HOME MEDICATIONS: See Below ALLERGIES: See Below VITALS: See Below PHYSICAL EXAMINATION: GENERAL: Sitting up in bed, alert, well appearing, well nourished, no distress, non-toxic EYE EXAM: conjunctival pallor. PERRL and EOM's grossly intact. OROPHARYNX: no exudate, no erythema, lips, buccal mucosa, and tongue normal and mucous membranes are moist NECK: supple, no nuchal rigidity, no adenopathy, non-tender LUNGS: Clear to auscultation. Normal chest wall mechanics HEART: no murmurs, regular rate, regular rhythm ABDOMEN: abdomen soft, significant ttp in the RUQ/RLQ, no masses, rebound or guarding present. BACK: Back is symmetrical on inspection and there is no deformity, no midline tenderness, no CVA tenderness. SKIN: no rashes and no bruising UPPER EXTREMITIES: upper extremities are grossly normal. LOWER EXTREMITIES: No pitting edema. NEURO EXAM: Normal sensorium, GCS 15, normal speech, no gross weakness of arms, no gross weakness of legs. MEDICAL DECISION MAKING: Differential diagnoses includes but not limited to LGIB, bleeding hemorrhoids, malignancy, bowel perforation, ischemic colitis, acute cholecystitis, appendicitis, acute anemia, electrolyte derangements, dehydration In summary, this is a 79 year old female who presented with acute abdominal pain with associated rectal bleeding. Differential as above. Nursing notes and pertinent past medical records reviewed. Vital signs reviewed and the patient is afebrile and HDS but HR >90. History and presentation revealed chronic anticoagulation in the setting of LGIB making her high risk to decompensate. Unfortunately, the patient does have mild evidence of peritonitis on exam as well. Physical examination revealed as above. As a result of my initial evaluation, we will plan for CT imaging and basic labs. Will provide IVFR and pain control. Diagnostics interpreted by me include EKG and cardiac monitoring as listed below: -Cardiac Monitoring: An order was placed for continuous cardiac monitoring. The monitor shows a rate of 50-90s with irregular rhythm. -ECG: EKG independently interpreted by me reveals rate controlled atrial fibrillation at 98 bpm. There is a right bundle branch block present. No significant ST segment changes to suggest STEMI. Intervals are otherwise within normal limits. Patient completed laboratory studies and imaging. Results independently interpreted by me are significant leukocytosis. No acute anemia. Hypokalemia noted and PO replenishment ordered. No kidney dysfunction but evidence of dehydration on labs and physical examination. Given the patient's leukocytosis as well as heart rate and evidence of peritonitis, will add coverage for intra- abdominal pathology with IV Zosyn. Will collect blood cultures as well. Plan for IV fluid resuscitation. Chaffee score is 13 points and discharge is not recommended as she has a high risk lower GI bleed at this time. Lactate was normal making ischemic colitis less likely. This is complicated by her chronic anticoagulation. CT AP was independently interpreted by me as cholelithiasis with possibility of cholecystitis and formal US was ordered. CT radiology read notes only proctocolitis. RUQ US was negative for acute cholecystitis on my independent interpretation. I feel antibiotic continuation for colitis is reasonable given tenderness and criteria met for SIRS. Her pain and bleeding did improve on subsequent evaluations. Ultimately, the decision was made to admit the patient for high lower GI bleeding with evidence of proctocolitis and concerns for sepsis. I discussed the case with the hospitalist service via telephone/TigerText and they are agreeable to admit the patient to their services. Based on the above, including the patient's age, coexisting illnesses, labs, imaging, and exam findings the decision to treat as an inpatient. I discussed the patient with the hospitalist team who recommended admission to their services. They received the medications, treatments, interventions indicated above and their condition remained guarded. I discussed my findings with the patient and their family and they understand and agree with the treatment plan. All patient / family questions were answered to their satisfaction. Consults/Care Managements Discussions: Per MDM ER treatment provided: See above Procedures: None Critical Care: None The chart was completed utilizing [employer] Speech voice recognition software. Grammatical errors, random word insertions, pronoun errors, and incomplete sentences are an occasional consequence of this system due to software limitations, ambient noise, and hardware issues. Any formal questions or concerns about the content, text, or information contained within the body of this dictation should be directly addressed to the physician for clarification. Past Med/Surg History Problem List (Updated 12/02/24 @ 23:49 by Mustapha Serrano DO) Chronic anticoagulation (Acute) Acute dehydration (Acute) Hypokalemia (Acute) Proctocolitis (Acute) Leukocytosis (Acute) Colitis (Acute) LGI bleed (Acute) Dehydration, mild Hypokalemia due to excessive gastrointestinal loss of potassium Acute proctitis Colitis Lower GI bleed History of mitral valve replacement with mechanical valve Status post mechanical aortic valve replacement Vitamin B12 deficiency (Chronic) Mild cognitive impairment (Chronic) Sensory polyneuropathy (Chronic) Urge incontinence Right bundle branch block (Chronic) correction (current) use of anticoagulants (Chronic) Impaired fasting glucose (Chronic) Chronic migraine (Chronic) Mixed incontinence urge and stress (Chronic) Genitourinary syndrome of menopause (Chronic) GERD (gastroesophageal reflux disease) (Chronic) Diastolic heart failure (Chronic) Chronic sinusitis (Chronic) Atrial fibrillation (Chronic) Depression (Chronic) Hyperlipidemia (Chronic) Hypertension (Chronic) Hypothyroidism (Chronic) Insomnia (Chronic) Obstructive sleep apnea (Chronic) Osteoporosis (Chronic) alendronate therapy [id number] Medical History (Updated 12/02/24 @ 23:49 by Mustapha J. Serrano, DO) Cerebrovascular accident (CVA) (02/2023) subacute occipital infarct seen on MRI Rheumatic heart disease s/p [facility] AVR/MVR (2011) Surgical History (Updated 08/31/24 @ 13:19 by Niharika Everett MD, PhD) Status post right knee replacement (06/2022) History of esophagogastroduodenoscopy (EGD) History of bilateral tubal ligation Hx of hemorrhoidectomy History of colonoscopy History of cardioversion x2 History of cardiac cath 2011 > no stents S/P aortic valve replacement (2011) Status post arthroscopic partial medial meniscectomy right knee History of cataract surgery B/L S/P MVR (mitral valve replacement) (2011) Family History Mother Atrial fibrillation Father Myocardial infarction Grandfather (Maternal) Colorectal cancer Sister Lung cancer Other No family history of adverse response to anesthesia Denies family history of Ovarian cancer Prostate cancer Diabetes Breast cancer Social History Smoking Status: Never smoker Second Hand Exposure: No; Do You Dip or Chew Tobacco: No; Hx Alcohol Use: No Hx Substance Use: No Preferred Language: Turkish Communication Ability: Effective Visual Impairment: No Limitations Hearing Ability: Normal Pail Tester Required: No Beliefs That Will Affect Care: None marital status: Current Living Situation: Spouse current occupational status: retired 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 Feels Safe at Home: Yes Childhood Exposure to Second-Hand Smoke: Yes Diet: regular caffeine: No Dental Care, Regularly: No Physical Activity Frequency: Daily Seatbelt Use: always Sunscreen Use: Yes Assistive Devices: Walker Allergies Allergies Allergy/AdvReac Type Severity Reaction Status Date / Time trazodone AdvReac Intermediate Nightmares Verified 12/02/24 17:34 Home Meds Home Medications Medication Instructions Recorded Confirmed aspirin 81 mg tablet,delayed 81 mg PO QAM 09/08/20 12/02/24 release cholecalciferol (vitamin D3) 25 1,000 units PO QAM 09/08/20 12/02/24 mcg (1,000 unit) capsule pseudoephedrine HCl 120 mg 120 mg PO BID PRN Nasal Congestion 05/24/22 12/02/24 tablet,extended release (Sudafed 12 Hour) mirabegron 50 mg tablet,extended 50 mg PO .QOD 06/04/24 12/02/24 release 24 hr (Myrbetriq) furosemide 40 mg tablet 40 mg PO QAM 09/28/24 12/02/24 warfarin 2 mg tablet 2 mg PO QDD 10/28/24 12/02/24 Previous Rx's Medication Instructions Recorded albuterol sulfate 90 mcg/actuation 2 puff inhalation Q4H PRN 01/23/21 aerosol inhaler (Ventolin HFA) shortness of breath #8.5 grams escitalopram oxalate 5 mg tablet 5 mg PO DAILY #90 tabs 01/14/24 diltiazem HCl 240 mg 240 mg PO QAM #90 caps 02/05/24 capsule,extended release 24 hr (Cartia XT) topiramate 50 mg tablet 50 mg PO HS chronic migraine #90 02/05/24 tabs rosuvastatin 10 mg tablet 10 mg PO DAILY #90 tabs 02/27/24 benzonatate 100 mg capsule 100 mg PO TID PRN cough #30 caps 06/04/24 [id number] See Rx Instructions PO Q8H PRN 06/04/24 50 mg-300 mg-40 mg capsule headache #10 Tabs (Fioricet) fluticasone propionate 50 1 spray intranasal BID PRN Nasal 06/04/24 mcg/actuation nasal Congestion #16 grams spray,suspension (Flonase Allergy Relief) potassium chloride 20 mEq 40 meq (2 x 20 mEq) PO DAILY #180 06/11/24 tablet,extended release tabs pantoprazole 40 mg tablet,delayed 40 mg PO DAILY #90 tabs 07/14/24 release levothyroxine 25 mcg tablet 25 mcg PO QAM #90 tabs 07/22/24 metoprolol tartrate 50 mg tablet 50 mg PO BID #180 tabs 07/30/24 zolpidem 10 mg tablet 10 mg PO HS PRN insomnia #30 tabs 09/28/24 Results & Data (ED) Vital Signs Vital Signs - 24 hr 12/02/24 15:21 12/02/24 15:38 12/02/24 15:42 Pulse Rate 95 H 77 109 H Pulse Rate [Apical] Pulse Rate from SpO2 Sensor Pulse Rhythm [Apical] Pulse Strength [Apical] Respiratory Rate 12 18 Respiratory Effort / Characteristics Non-Labored Respiratory Depth Normal Blood Pressure 106/67 137/79 Blood Pressure [Right Arm] Blood Pressure Mean 80 126 Blood Pressure Mean [Right Arm] Blood Pressure Position [Right Arm] Pulse Oximetry 97 96 Oxygen Delivery Method Room Air Room Air Sepsis Recent Fever Within 48 Hours No Sepsis New/Unexplained Change in Mental Status N/A Sepsis Action Taken by Nursing No Action Required 12/02/24 15:50 12/02/24 15:50 12/02/24 16:01 Pulse Rate 77 Pulse Rate [Apical] 87 Pulse Rate from SpO2 Sensor Pulse Rhythm [Apical] Irregular Pulse Strength [Apical] Normal Respiratory Rate 16 21 Respiratory Effort / Characteristics Non-Labored Respiratory Depth Normal Blood Pressure 119/71 Blood Pressure [Right Arm] 137/79 Blood Pressure Mean 93 Blood Pressure Mean [Right Arm] 98 Blood Pressure Position [Right Arm] Semi-fowlers Pulse Oximetry 96 96 96 Oxygen Delivery Method Room Air Room Air Room Air Sepsis Recent Fever Within 48 Hours Sepsis New/Unexplained Change in Mental Status Sepsis Action Taken by Nursing 12/02/24 17:30 12/02/24 17:54 12/02/24 18:01 Pulse Rate 65 60 Pulse Rate [Apical] Pulse Rate from SpO2 Sensor Pulse Rhythm [Apical] Pulse Strength [Apical] Respiratory Rate 17 25 H Respiratory Effort / Characteristics Respiratory Depth Blood Pressure 109/58 L 94/53 L Blood Pressure [Right Arm] Blood Pressure Mean 75 66 Blood Pressure Mean [Right Arm] Blood Pressure Position [Right Arm] Pulse Oximetry 99 Oxygen Delivery Method Room Air Sepsis Recent Fever Within 48 Hours Sepsis New/Unexplained Change in Mental Status Sepsis Action Taken by Nursing 12/02/24 18:01 12/02/24 19:50 12/02/24 19:51 Pulse Rate Pulse Rate [Apical] 70 Pulse Rate from SpO2 Sensor Pulse Rhythm [Apical] Pulse Strength [Apical] Respiratory Rate 20 Respiratory Effort / Characteristics Non-Labored Spontaneous Respiratory Depth Blood Pressure 94/53 L 111/60 Blood Pressure [Right Arm] 111/60 Blood Pressure Mean 66 75 Blood Pressure Mean [Right Arm] 77 Blood Pressure Position [Right Arm] Lying Pulse Oximetry 92 Oxygen Delivery Method Room Air Sepsis Recent Fever Within 48 Hours Sepsis New/Unexplained Change in Mental Status Sepsis Action Taken by Nursing 12/02/24 20:00 12/02/24 20:12/02/24 20:12 Pulse Rate 64 66 Pulse Rate [Apical] Pulse Rate from SpO2 Sensor 63 64 Pulse Rhythm [Apical] Pulse Strength [Apical] Respiratory Rate 21 19 Respiratory Effort / Characteristics Respiratory Depth Blood Pressure 115/48 L Blood Pressure [Right Arm] Blood Pressure Mean 66 Blood Pressure Mean [Right Arm] Blood Pressure Position [Right Arm] Pulse Oximetry 98 96 Oxygen Delivery Method Sepsis Recent Fever Within 48 Hours Sepsis New/Unexplained Change in Mental Status Sepsis Action Taken by Nursing Laboratory Data 12/02/24 15:41 12/02/24 15:41 Lab Results 12/02/24 12/02/24 Range/Units 15:41 19:26 WBC 18.96 H (4.8-10.8) K/ul RBC 5.07 (4.20-5.40) M/uL Hgb 13.9 (12.0-16.0) g/dl Hct 41.6 (37.0-47.0) % MCV 82.1 (80.0-100.0) fL MCH 27.4 (25.0-34.0) pg MCHC 33.4 (32.0-36.0) g/dL RDW Std Deviation 41.1 (36.4-46.3) fL RDW Coeff of [place] 13.8 (11.5-14.5) % Plt Count 182 (130-400) K/uL MPV 10.5 (9.4-12.4) fL Immature Gran % (Auto) 0.5 % Neut % (Auto) 82.5 % Lymph % (Auto) 8.2 % [place] % (Auto) 8.2 % Eos % (Auto) 0.3 % Baso % (Auto) 0.3 % Neut # (Auto) 15.65 H (1.40-6.50) K/uL Lymph # (Auto) 1.55 (1.20-3.40) K/uL [place] # (Auto) 1.56 H (0.11-0.59) K/uL Eos # (Auto) 0.05 (0.00-0.50) K/uL Baso # (Auto) 0.05 (0.00-0.20) K/uL Immature Gran # (Auto) 0.10 (0.01-0.20) K/uL PT 32.9 H (9.0-12.0) Seconds INR 3.4 H (0.9-1.1) APTT 54 H (21-31) Seconds PTT Ratio 2.0 Sodium 136 (136-145) mmol/L Potassium 3.4 L (3.5-5.1) mmol/L Chloride 104 (98-107) mmol/L Carbon Dioxide 22 (21-32) mmol/L Anion Gap 10 (3-11) BUN 16 (6-23) mg/dl Creatinine 1.08 (0.6-1.2) mg/dl Est Cr Clr Drug Dosing 42.8 ml/min eGFR 52.90 BUN/Creatinine Ratio 14.8 (10-20) Glucose 108 H (70-99(Fasting)) mg/dl Lactate 0.9 (0.4-2.0) mmol/L Calcium 9.2 (8.6-10.3) mg/dl Magnesium 1.8 (1.7-2.4) mg/dl Total Bilirubin 1.4 H (0.2-1.0) mg/dl AST 18 (13-39) U/L ALT 8 (7-52) U/L Alkaline Phosphatase 58 (34-104) U/L Troponin I High Sens 9.6 (0-14) pg/ml Total Protein 7.7 (6.0-8.3) gm/dl Albumin 4.1 (3.4-5.0) gm/dl Globulin 3.6 (2.5-4.0) gm/dl Albumin/Globulin Ratio 1.1 (0.9-2) Lipase 34 (11-82) U/L Procalcitonin 0.17 (0-0.5) ng/ml Blood Type A Negative Antibody Screen NEGATIVE Administered Medications Lactated Ringer's (Lr) 1,000 mls @ 100 mls/hr IV .Q10H AFBRICE Stop: 12/03/24 15:59 Last Admin: 12/02/24 20:27 Dose: 100 mls/hr Documented By: CDM Discontinued Medications Pantoprazole Sodium (Protonix) 40 mg in 10 mls @ 5 mls/min IV NOW ONE Stop: 12/02/24 15:32 Last Admin: 12/02/24 15:56 Dose: 5 mls/min Documented By: collin Piperacillin Sod/Tazobactam Sod (Zosyn) 4.5 gm in 100 mls @ 200 mls/hr IV NOW ONE; Protocol Stop: 12/02/24 16:36 Last Infusion: 12/02/24 17:16 Dose: Infused Documented By: collin Admin: 12/02/24 16:36 Dose: 200 mls/hr Documented By: collin Acetaminophen (Ofirmev) 1,000 mg in 100 mls @ 400 mls/hr IV NOW STA Stop: 12/02/24 20:22 Last Infusion: 12/02/24 23:04 Dose: Infused Documented By: Admin: 12/02/24 20:27 Dose: 400 mls/hr Documented By: ELISA Ioversol (Optiray 320 100ml) 90 ml IV ONCE ONE Stop: 12/02/24 17:14 Last Admin: 12/02/24 17:13 Dose: 90 ml Documented By: JOHNNA Potassium Chloride (Potassium Chloride Crtab 20 Meq Tabcr) 40 meq PO NOW STA Stop: 12/02/24 19:29 Last Admin: 12/02/24 19:48 Dose: 40 meq Documented By: ELISA Imaging Data Radiologist's Impression: Abdomen/Pelvis CT 12/02/24 15:31 EXAMINATION: CT of the abdomen and pelvis performed after the administration of IV contrast TECHNIQUE: Helical CT images from the lung bases through the symphysis pubis were obtained with contrast. Coronal and sagittal reformatted images were generated at a workstation for further assessment. Dose reduction techniques were achieved by using automatic exposure control and/or adjustment of mA and/or kV according to patient size and/or use of iterative reconstruction technique. COMPARISON: None HISTORY: Abdominal pain FINDINGS: Lower chest: No consolidation. No pleural effusion or pneumothorax.Cardiomegaly. Mitral valve annuloplasty. Partially visualized aortic valve replacement. Liver: No suspicious liver lesions. Portal veins appear patent. Gallbladder: There is cholelithiasis. No evidence of acute cholecystitis. Spleen: Normal size. Pancreas: No suspicious pancreatic lesions. The pancreatic duct is not dilated. Adrenal glands: No adrenal nodules. Kidneys: No hydronephrosis or obstructing renal stones. Bladder / Pelvic organs: Unremarkable. Bowel: No bowel obstruction. Prominent circumferential wall thickening of the right/ascending colon. There is no significant stool burden in the colon noted. There may be mild thickening of the wall of the rectum. The appendix is unremarkable. Lymph nodes: No retroperitoneal, mesenteric, or pelvic lymphadenopathy. Peritoneum / Retroperitoneum: No free fluid or air within the abdomen. Vessels: No infrarenal aortic aneurysm. Moderate aortoiliac calcification. Bones and soft tissues: No suspicious lesion in the bones. IMPRESSION: Findings of ascending colitis. Possible mild proctitis. Electronically signed by Mir Lind 12-02-2024 6:05 PM Gallbladder Ultrasound 12/02/24 17:26 Technique: Sonography was performed of the right upper quadrant of the abdomen Findings: There is no sign of cirrhosis or significant fatty infiltration. No definite liver mass is seen A stone is seen in the gallbladder neck. The gallbladder has a normal wall thickness and no adjacent fluid is seen. No definite sonographic Robles sign was detected. There is no intrahepatic or extrahepatic bile duct dilatation. The common bile duct measures 4 mm The right kidney measures 9.3 cm in length. There is mild hydronephrosis. There is a 2 mm right renal calculus The visualized pancreas, aorta, and IVC appear unremarkable. No ascites is seen Impression: 1. Cholelithiasis without definite acute cholecystitis 2. Mild right hydronephrosis. CT of the abdomen and pelvis could be considered for further evaluation 3. Small right renal calculus ACT 112: Positive. There are findings on this exam that require communication between the performing entity and the patient following Patient Test Result Information Act ([place] ACT 112) guidelines. Electronically signed by Rubin Young 12-02-2024 7:06 PM Discharge Plan Visit Data Chief Complaint: Rectal Bleed Stated Complaint: REF BY DOC, RECTAL BLEEDING ED Provider: Mustapha Serrano Discharge Problem: LGI bleed, Colitis, Leukocytosis, Proctocolitis, Hypokalemia, Acute dehydration, Chronic anticoagulation Patient Disposition: Admitted As Inpatient Condition: Serious Discharge Instructions Interventions: ED Discharge Assessment Last Done: 12/02/24 22:42
[2024-12-02 16:04] LABS: Hematocrit (blood only) 41.6 % (37.0-47.0); Hemoglobin 13.9 g/dl (12.0-16.0); Immature Granulocytes # (auto) 0.10 K/uL (0.01-0.20); Immature Granulocytes % (auto) 0.5 %; Mean Corpuscular Hemoglobin 27.4 pg (25.0-34.0); Mean Corpuscular Volume 82.1 fL (80.0-100.0); Platelet Count 182 K/uL (130-400); RDW Standard Deviation 41.1 fL (36.4-46.3); Red Blood Count 5.07 M/uL (4.20-5.40); White Blood Count 18.96 K/ul (4.8-10.8)
[2024-12-02 16:24] LABS: Alanine Aminotransferase 8.0 U/L (7-52); Albumin Globulin Ratio 1.1 (0.9-2); Alkaline Phosphatase 58.0 U/L (34-104); Anion Gap 10.0 (3-11); Bilirubin,Total 1.4 mg/dl (0.2-1.0); Blood Urea Nitrogen 16.0 mg/dl (6-23); Calcium 9.2 mg/dl (8.6-10.3); Carbon Dioxide 22.0 mmol/L (21-32); Chloride 104.0 mmol/L (98-107); Creatinine Clr Calc Pharmacy 42.8 ml/min; Globulin 3.6 gm/dl (2.5-4.0); Glucose 108.0 mg/dl (70-99(Fasting)); Lipase 34.0 U/L (11-82); Potassium 3.4 mmol/L (3.5-5.1); Sodium 136.0 mmol/L (136-145); Total Protein 7.7 gm/dl (6.0-8.3)
[2024-12-02 16:36] LABS: INR 3.4 (0.9-1.1); Partial Thromboplastin Time 54 Seconds (21-31); Prothrombin Time 32.9 Seconds (9.0-12.0)
[2024-12-02] MEDS: PIPERACILLIN/TAZOBACTAM 4.5 GM/100 ML BAG IV ONE (16:36)
[2024-12-02] MEDS: OPTIRAY 320 100ml IV ONE (17:13)
--- NOTE | 2024-12-02 18:05 | CT Scan Report ---
EXAMINATION: CT of the abdomen and pelvis performed after the administration of IV contrast TECHNIQUE: Helical CT images from the lung bases through the symphysis pubis were obtained with contrast. Coronal and sagittal reformatted images were generated at a workstation for further assessment. Dose reduction techniques were achieved by using automatic exposure control and/or adjustment of mA and/or kV according to patient size and/or use of iterative reconstruction technique. COMPARISON: None HISTORY: Abdominal pain FINDINGS: Lower chest: No consolidation. No pleural effusion or pneumothorax.Cardiomegaly. Mitral valve annuloplasty. Partially visualized aortic valve replacement. Liver: No suspicious liver lesions. Portal veins appear patent. Gallbladder: There is cholelithiasis. No evidence of acute cholecystitis. Spleen: Normal size. Pancreas: No suspicious pancreatic lesions. The pancreatic duct is not dilated. Adrenal glands: No adrenal nodules. Kidneys: No hydronephrosis or obstructing renal stones. Bladder / Pelvic organs: Unremarkable. Bowel: No bowel obstruction. Prominent circumferential wall thickening of the right/ascending colon. There is no significant stool burden in the colon noted. There may be mild thickening of the wall of the rectum. The appendix is unremarkable. Lymph nodes: No retroperitoneal, mesenteric, or pelvic lymphadenopathy. Peritoneum / Retroperitoneum: No free fluid or air within the abdomen. Vessels: No infrarenal aortic aneurysm. Moderate aortoiliac calcification. Bones and soft tissues: No suspicious lesion in the bones. IMPRESSION: Findings of ascending colitis. Possible mild proctitis. Electronically signed by Mir Lind 12-02-2024 6:05 PM
--- NOTE | 2024-12-02 19:06 | Ultrasound Report ---
Technique: Sonography was performed of the right upper quadrant of the abdomen Findings: There is no sign of cirrhosis or significant fatty infiltration. No definite liver mass is seen A stone is seen in the gallbladder neck. The gallbladder has a normal wall thickness and no adjacent fluid is seen. No definite sonographic Robles sign was detected. There is no intrahepatic or extrahepatic bile duct dilatation. The common bile duct measures 4 mm The right kidney measures 9.3 cm in length. There is mild hydronephrosis. There is a 2 mm right renal calculus The visualized pancreas, aorta, and IVC appear unremarkable. No ascites is seen Impression: 1. Cholelithiasis without definite acute cholecystitis 2. Mild right hydronephrosis. CT of the abdomen and pelvis could be considered for further evaluation 3. Small right renal calculus ACT 112: Positive. There are findings on this exam that require communication between the performing entity and the patient following Patient Test Result Information Act ([place] ACT 112) guidelines. Electronically signed by Rubin Young 12-02-2024 7:06 PM
--- NOTE | 2024-12-02 19:31 | History & Physical Report ---
Date of Service December 02, 2024 Assessment & Plan (1) Lower GI bleed: (2) Colitis: (3) Acute proctitis: (4) Hypokalemia due to excessive gastrointestinal loss of potassium: (5) Dehydration, mild: Plan Patient is a 79-year-old female with past medical history of rheumatic heart disease s/p mitral valve replacement and aortic valve replacement on warfarin, A-fib, diastolic HF, GERD, HLD, HTN. Patient presented due to several episodes of bright red blood in stool since Friday night found to have ascending colitis and proctitis on CT. Hgb is stable at 13.9. She is being admitted for IV antibiotics and LGIB workup. #LGIB/ascending colitis/proctitis - AP CT revealed ascending colitis and possible mild proctitis. Gallbladder ultrasound revealed cholelithiasis without cholecystitis and possible mild right hydronephrosis with small right renal stone which was ruled out on APCT. Patient has significant leukocytosis, WBC 18.96, procalcitonin and lactate negative. Hgb improved from baseline 12.9 -> 13.9, Hct 41.6%. Previous records reviewed 08/2020 - Colonoscopy revealed 4 polyps that were removed, diverticula, nonbleeding internal hemorrhoids. EGD revealed no abnormalities. - Hemoccult all stools - coverage with Zosyn - follow blood cultures - Protonix 40 mg IV BID - clear liquid diet, transition to N.P.O. after midnight - fluid resuscitation with LR @ 100 ml/hr x2 L - hold PO medications - GI consulted - hold Warfarin - last dose 12/01/24, INR 3.4 on arrival (goal 2.5-3.5) - defer reversal agent on admission given patient is hemodynamically stable - consult cardiology regarding continuation of Warfarin - pain control with IV Tylenol prn, morphine prn for breakthrough pain - nausea control with Compazine prn given QTC 525 - H&H recheck overnight Q6H - trend CBC - type and screen ordered #dehydration - laboratories severely hemoconcentrated, with dry mucous membranes. With poor p.o. intake for several days while on diuretics. UA ordered Holding Lasix with n.p.o. status IVF as above #Hypomagnesemia K 3.4, Mg 1.8, renal function stable. With chronic diuretic use and poor p.o. intake. Holding Lasix with n.p.o. status 40 mEq p.o. KCl in ED Trend BMP and magnesium #diastolic CHF most recent echo 01/2024 revealed EF 50 to 55%, mildly dilated RV with borderline reduced function, trace AI, trace MR, aortic and mitral valves with expected gradients. No acute exacerbation at time of admission, patient clinically dry. Holding Lasix and potassium supplement Daily weights Strict I's and O's #rheumatic heart disease s/p aortic and mitral valve replacement in 2011 on warfarin. Goal INR 2.5-3.5; INR 3.4 on admission. - holding warfarin as above Cardiology consulted #A Fib - in a fib at time of admission, electrolyte repletion as above, troponin 9.6. - holding metoprolol and diltiazem Lopressor as needed for tachycardia Monitor on telemetry #HLD holding ASA and statin with n.p.o. status #Hypothyroidism holding levothyroxine #Mental health holding Lexapro #GERD p.o. PPI transition to IV VTE ppx: SCDs, hold chemical ppx with GI bleed Dispo: PCU Admission and Anticipated Discharge Date Admission Date: 12/02/24 History of Present Illness Chief Complaint: rectal bleed Primary Care Provider: Mickie Ford MD Patient is a 79-year-old female with past medical history of rheumatic heart disease s/p mitral valve replacement and aortic valve replacement on warfarin, A-fib, diastolic HF, GERD, HLD, HTN. Patient presented due to several episodes of bright red blood in stool since Friday found to have ascending colitis and proctitis on CT. Hgb is stable at 13.9. She is being admitted for IV antibiotics and LGIB workup. Patient seen at bedside. She stated that Friday night she had 1 episode of bright red blood in her stool filling the toilet, she felt as though it was a lot of blood. She also vomited 1 time but denies any hematemesis. She had 2 episodes of bleeding on Friday, 2 on Friday, and 1 today. She stated since Friday she has not eaten or drinking much because she is concerned about the blood in her stool. She stated her stools are formed, denies any diarrhea or constipation. She has also had right lower quadrant abdominal pain since this started. She also feels weak and lightheaded. She denies any chest pain, shortness of breath. She denies any frequent NSAID use. She stated her last colonoscopy was approximately 6 years ago and she also had an EGD at the same time. Records reviewed and colonoscopy revealed 4 polyps that were removed, diverticula, nonbleeding internal hemorrhoids. EGD revealed no abnormalities. She denies any nicotine or alcohol use. She does not use any sleep aids for noted CARO in her chart. She took her morning medications today but is due for her evening medications which include warfarin, last dose of warfarin the evening of 12/01. She wishes to be DNR/DNI. Allergies Allergy/AdvReac Type Severity Reaction Status Date / Time trazodone AdvReac Intermediate Nightmares Verified 12/02/24 17:34 Home Medications Medication Instructions Recorded Confirmed Type aspirin 81 mg tablet,delayed 81 mg PO QAM 09/08/20 12/02/24 History release cholecalciferol (vitamin D3) 25 1,000 units PO QAM 09/08/20 12/02/24 History mcg (1,000 unit) capsule albuterol sulfate 90 mcg/actuation 2 puff inhalation Q4H PRN 01/23/21 12/02/24 Rx aerosol inhaler (Ventolin HFA) shortness of breath #8.5 grams pseudoephedrine HCl 120 mg 120 mg PO BID PRN Nasal Congestion 05/24/22 12/02/24 History tablet,extended release (Sudafed 12 Hour) escitalopram oxalate 5 mg tablet 5 mg PO DAILY #90 tabs 01/14/24 12/02/24 Rx diltiazem HCl 240 mg 240 mg PO QAM #90 caps 02/05/24 12/02/24 Rx capsule,extended release 24 hr (Cartia XT) topiramate 50 mg tablet 50 mg PO HS chronic migraine #90 02/05/24 12/02/24 Rx tabs rosuvastatin 10 mg tablet 10 mg PO DAILY #90 tabs 02/27/24 12/02/24 Rx benzonatate 100 mg capsule 100 mg PO TID PRN cough #30 caps 06/04/24 12/02/24 Rx emgwjvbryf-irxtrzhhlrieo-zzhfewpv See Rx Instructions PO Q8H PRN 06/04/24 12/02/24 Rx 50 mg-300 mg-40 mg capsule headache #10 Tabs (Fioricet) fluticasone propionate 50 1 spray intranasal BID PRN Nasal 06/04/24 12/02/24 Rx mcg/actuation nasal Congestion #16 grams spray,suspension (Flonase Allergy Relief) mirabegron 50 mg tablet,extended 50 mg PO .QOD 06/04/24 12/02/24 History release 24 hr (Myrbetriq) potassium chloride 20 mEq 40 meq (2 x 20 mEq) PO DAILY #180 06/11/24 12/02/24 Rx tablet,extended release tabs pantoprazole 40 mg tablet,delayed 40 mg PO DAILY #90 tabs 07/14/24 12/02/24 Rx release levothyroxine 25 mcg tablet 25 mcg PO QAM #90 tabs 07/22/24 12/02/24 Rx metoprolol tartrate 50 mg tablet 50 mg PO BID #180 tabs 07/30/24 12/02/24 Rx furosemide 40 mg tablet 40 mg PO QAM 09/28/24 12/02/24 History zolpidem 10 mg tablet 10 mg PO HS PRN insomnia #30 tabs 09/28/24 12/02/24 Rx warfarin 2 mg tablet 2 mg PO QDD 10/28/24 12/02/24 History Past Med/Surg History Problem List (Updated 12/02/24 @ 23:49 by Mustapha Serrano DO) Chronic anticoagulation (Acute) Acute dehydration (Acute) Hypokalemia (Acute) Proctocolitis (Acute) Leukocytosis (Acute) Colitis (Acute) LGI bleed (Acute) Dehydration, mild Hypokalemia due to excessive gastrointestinal loss of potassium Acute proctitis Colitis Lower GI bleed History of mitral valve replacement with mechanical valve Status post mechanical aortic valve replacement Vitamin B12 deficiency (Chronic) Mild cognitive impairment (Chronic) Sensory polyneuropathy (Chronic) Urge incontinence Right bundle branch block (Chronic) detention (current) use of anticoagulants (Chronic) Impaired fasting glucose (Chronic) Chronic migraine (Chronic) Mixed incontinence urge and stress (Chronic) Genitourinary syndrome of menopause (Chronic) GERD (gastroesophageal reflux disease) (Chronic) Diastolic heart failure (Chronic) Chronic sinusitis (Chronic) Atrial fibrillation (Chronic) Depression (Chronic) Hyperlipidemia (Chronic) Hypertension (Chronic) Hypothyroidism (Chronic) Insomnia (Chronic) Obstructive sleep apnea (Chronic) Osteoporosis (Chronic) alendronate therapy [id number] Medical History (Updated 12/02/24 @ 23:49 by Mustapha Serrano, DO) Cerebrovascular accident (CVA) (02/2023) subacute occipital infarct seen on MRI Rheumatic heart disease s/p [facility] AVR/MVR (2011) Surgical History (Updated 08/31/24 @ 13:19 by Niharika Everett MD, PhD) Status post right knee replacement (06/2022) History of esophagogastroduodenoscopy (EGD) History of bilateral tubal ligation Hx of hemorrhoidectomy History of colonoscopy History of cardioversion x2 History of cardiac cath 2011 > no stents S/P aortic valve replacement (2011) Status post arthroscopic partial medial meniscectomy right knee History of cataract surgery B/L S/P MVR (mitral valve replacement) (2011) Family History Mother Atrial fibrillation Father Myocardial infarction Grandfather (Maternal) Colorectal cancer Sister Lung cancer Other No family history of adverse response to anesthesia Denies family history of Ovarian cancer Prostate cancer Diabetes Breast cancer Social History Smoking Status: Never smoker Second Hand Exposure: No; Do You Dip or Chew Tobacco: No; Hx Alcohol Use: No Hx Substance Use: No Preferred Language: [place] Communication Ability: Effective Visual Impairment: No Limitations Hearing Ability: Normal Molding Plasterer Required: No Beliefs That Will Affect Care: None marital status: Current Living Situation: Alone and Spouse current occupational status: retired 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 Non-toxic appearing. HEENT- EOMI, mucous membranes dry. Hearing grossly intact. Heart-normal S1 and S2. No murmurs, rubs or gallops. Lungs-clear bilaterally, no respiratory distress, no accessory muscle use. Abdomen-normal bowel sounds and soft. No ascites noted. Tender RLQ. Extremities- no clubbing, cyanosis, or edema. Rheumatologic-normal range of motion. Psychiatric-normal affect. Results & Data Results & Data Vital Signs (Past 12 Hours) Vital Signs Pulse Pulse Resp BP BP Pulse Ox O2 Del Method 12/02/24 17:30 65 17 109/58 L 99 Room Air 12/02/24 16:01 77 21 119/71 96 Room Air 12/02/24 15:50 96 Room Air 12/02/24 15:50 87 16 137/79 96 Room Air 12/02/24 15:42 109 H 12/02/24 15:38 77 18 137/79 96 Room Air 12/02/24 15:21 95 H 12 106/67 97 Room Air Laboratory Results Reviewed CBC, PT/INR, CMP, Pro-Jesus Manuel, troponin, mag Diagnostic Findings reviewed AP CT and gallbladder ultrasound Medications Administered ED - Protonix 40mg IV, Zosyn 4.5g IV, potassium Cl 40 meq ECG Additional Comments: A-fib, RBBBknown history of Rate 98 QTc 525 Code Status & VTE Plan Code Status dnr/dni VTE Prophylaxis Plan VTE Prophylaxis will be ordered: Yes Supervising Physician Co-Signing Physician Notes Attending addendum: I have physically seen this patient, have supervised the MEDARDO's activities, and agree with the H&P unless as otherwise noted. Assessment and Plan: The patient is a 79-year-old female with a past medical history including rheumatic heart disease status post mitral valve replacement and aortic valve replacement on warfarin, atrial fibrillation, diastolic heart failure, GERD, hyperlipidemia and hypertension. She presents to emergency department due to several episodes of bright red blood per rectum since [address] scan evaluated pelvis notes ascending colitis and proctitis. Hemoglobin on admission was stable at 13.9. The patient is referred for evaluation for admission for [facility] service for further evaluation and treatment. Lower GI bleed/ascending colitis/proctitis- As noted on CT Gallbladder ultrasound notes cholelithiasis without cholecystitis, possible mild right hydronephrosis with a small right renal stone. Colonoscopy 09/11 revealed 4 polyps that were removed, diverticula, nonbleeding internal hemorrhoids. EGD 09/11 revealed no abnormalities. Hemoccult stools Zosyn 4.5 g IV every 8 hours Protonix 40 mg IV twice daily Blood cultures to be followed per sensitivities Clear liquid diet until midnight, and then changed to n.p.o. LR at 100 mL/h x 2 L Hold warfarin Acetaminophen 1 g IV every 8 hours as needed for mild pain or fever Morphine as noted as needed for breakthrough pain Compazine 10 mg IV every 6 hours as needed H&H every 6 hours x 4 Follow serial CBC with differential and chemistry profile Type and screen ordered Consult gastroenterology Atrial fibrillation/rheumatic heart disease/diastolic CHF/history of aortic and mitral valve replacements- INR 3.4 on admission, with goal range 2.5-3.5 Hold today's dose of warfarin and follow serial INR's Hold metoprolol and diltiazem Lopressor IV as noted for tachycardia Holding furosemide and potassium Hold aspirin Consult cardiology Hyperlipidemia- Hold rosuvastatin Migraine- Temporarily hold topiramate Mental health- Hold Lexapro while n.p.o. GERD- Changing pantoprazole from oral to IV as noted above PG Care Time/CCT Total # of Minutes Spent Total Time Spent with Patient: Total time spent is greater than 50% in coordination of care (as documented) at patient's floor/unit and/or counseling patient: Coding Level of Care Code 36601 INT INP/OBS CARE MIN Diagnoses Lower GI bleed K92.2 Colitis K52.9 Acute proctitis K62.89 Hypokalemia due to excessive gastrointestinal loss of potassium E87.6 Dehydration, mild E86.0
[2024-12-02 19:47] LABS: Magnesium 1.8 mg/dl (1.7-2.4)
[2024-12-02] MEDS: POTASSIUM CHLORIDE CRTAB 20 MEQ TABCR PO STA (19:48)
[2024-12-02] MEDS: ACETAMINOPHEN 1,000 MG/100 ML VIAL IV STA (20:27)
[2024-12-02] MEDS: LACTATED RINGER'S 1,000 ML IV SCH (20:27)
[2024-12-02] MEDS ORDERED: FLUTICASONE PROPIONATE NA SPR 16 GM BTL PRN (23:03)
[2024-12-02] MEDS ORDERED: ALBUTEROL HFA 8 GM INHALER INH PRN (23:03)
[2024-12-02] MEDS ORDERED: MoRPHine SULFATE 2 MG/ML CARP IV PRN (23:03)
[2024-12-02] MEDS ORDERED: ACETAMINOPHEN 1,000 MG/100 ML VIAL IV PRN (23:03)
[2024-12-02] MEDS ORDERED: METOPROLOL TARTRATE 1 MG/ML VIAL IV PRN (23:03)
[2024-12-02] MEDS ORDERED: MoRPHine SULFATE 4 MG/ML 1 ML CARP\\VIAL IV PRN (23:03)
[2024-12-03 00:01] LABS: Hematocrit (blood only) 39.0 % (37.0-47.0); Hemoglobin 12.2 g/dl (12.0-16.0)
[2024-12-03] MEDS ORDERED: NYSTATIN POWDER 15GM BTL EXT PRN (00:03)
[2024-12-03] MEDS: PANTOprazole 40 MG/10 ML SYR IV SCH (00:11)
[2024-12-03] MEDS: PIPERACILLIN/TAZOBACTAM 4.5 GM/100 ML BAG IV SCH (00:11)
[2024-12-03] MEDS: ZOLPIDEM TARTRATE 5 MG TAB PO ONE (00:11)
[2024-12-03 06:11] LABS: Hematocrit (blood only) 35.9 % (37.0-47.0); Hemoglobin 11.5 g/dl (12.0-16.0); Immature Granulocytes # (auto) 0.05 K/uL (0.01-0.20); Immature Granulocytes % (auto) 0.4 %; Mean Corpuscular Hemoglobin 26.3 pg (25.0-34.0); Mean Corpuscular Volume 82.2 fL (80.0-100.0); Platelet Count 146 K/uL (130-400); RDW Standard Deviation 41.2 fL (36.4-46.3); Red Blood Count 4.37 M/uL (4.20-5.40); White Blood Count 12.15 K/ul (4.8-10.8)
[2024-12-03 06:31] LABS: Alanine Aminotransferase 6.0 U/L (7-52); Albumin Globulin Ratio 1.2 (0.9-2); Alkaline Phosphatase 46.0 U/L (34-104); Anion Gap 6.0 (3-11); Bilirubin,Total 1.2 mg/dl (0.2-1.0); Blood Urea Nitrogen 14.0 mg/dl (6-23); Calcium 8.8 mg/dl (8.6-10.3); Carbon Dioxide 23.0 mmol/L (21-32); Chloride 108.0 mmol/L (98-107); Creatinine Clr Calc Pharmacy 45.4 ml/min; Globulin 2.9 gm/dl (2.5-4.0); Glucose 88.0 mg/dl (70-99(Fasting)); Magnesium 1.8 mg/dl (1.7-2.4); Potassium 3.6 mmol/L (3.5-5.1); Sodium 137.0 mmol/L (136-145); Total Protein 6.3 gm/dl (6.0-8.3)
--- NOTE | 2024-12-03 08:36 | Gastrointestinal Consultation ---
Date of Consultation December 03, 2024 Assessment & Plan (1) Proctocolitis: 79 year old female with history of rheumatic heart disease s/p mitral valve replacement and aortic valve replacement on warfarin, A-fib, diastolic HF, GERD, HLD, HTN admitted through the ED w/ abd cramping, diarrhea and rectal bleeding, imaging showing colitis and proctitis. She is afebrile with improving leukocytosis, w stable HGB. Suspect infectious etiology. Please continue course of ABX as she is improving. DDX discussed. Submit stool studies including c.diff. Treat underlying infection if positive. May use Bentyl 10 mg up to three times daily for abd cramping. Otherwise continue supportive measures. Trend HGB. Monitor GI output. Transfuse PRN per primary team. May hold anticoagulation while bleeding is present. OK to convert to oral Pantoprazole. OP colonoscopy in 6-8 weeks. I spent a total of 60 minutes on the date of service in review of patient's record, and previously obtained information in person and appropriate medical visit, discussion and education of plan, with patient and/or caregiver, placing orders for tests/referral/procedures as medically necessary and documentation of pertinent clinical information in patient's medical records for their visit today. Supervising Physician Co-Signing Physician Notes I personally saw and examined the patient. I have reviewed the chart and agree with the documentation provided by the TUBE COREMAKER including discussion about the assessment, treatment and plan. Briefly, 79 year old female with history of rheumatic heart disease s/p mitral valve replacement and aortic valve replac ement on warfarin, A-fib, diastolic HF, GERD, HLD, HTN admitted through the ED w/ abd cramping, diarrhea and rectal bleeding, imaging showing colitis and proctitis. Abdominal exam is benign. Her bleeding is stopped but she still continues to have a little bit of diarrhea. She is on IV antibiotics and can get 7 days of Cipro Flagyl outpatient. We will do a colonoscopy outpatient. My suspicion is she has infectious colitis>> ischemic colitis History of Present Illness Reason for Consultation: LGIB, colitis Requesting Physician: Rubin Galan MD Attending Physician: Rubin Galan MD History of Present Illness 79 year old female with history of rheumatic heart disease s/p mitral valve replacement and aortic valve replacement on warfarin, A-fib, diastolic HF, MIKE D, HLD, HTN admitted through the ED w/ rectal bleeding, imaging showing colitis and proctitis. She notes symptoms started Friday. Generalized GI upset, nausea, upset stomach. The following morning she developed loose stools associated w/ bleeding. Suggests all blood is BRB. She does not recall seeing clots. Since admission, her abd pain/cramping is still present, althoug improved. her stools are less frequent and she is reporting less blood in stools. No fever. No sick contacts. H&H 11.5/35.9 Stool studies not obtained CTAP 2024: Findings of ascending colitis. Possible mild proctitis. EGD 2020: - No endoscopic esophageal abnormality to explain patient's dysphagia. Esophagus dilated. Dilated. - Normal stomach. - Normal examined duodenum. - No specimens collected. Colonoscopy 2020: - Four 5 to 9 mm polyps in the transverse colon, in the ascending colon and in the cecum, removed with a hot snare. Resected and retrieved. - Diverticulosis in the sigmoid colon. - Non-bleeding internal hemorrhoids. Allergies Allergy/AdvReac Type Severity Reaction Status Date / Time trazodone AdvReac Intermediate Nightmares Verified 12/02/24 17:34 Home Medications Medication Instructions Recorded Confirmed Type aspirin 81 mg tablet,delayed 81 mg PO QAM 09/08/20 12/02/24 History release cholecalciferol (vitamin D3) 25 1,000 units PO QAM 09/08/20 12/02/24 History mcg (1,000 unit) capsule albuterol sulfate 90 mcg/actuation 2 puff inhalation Q4H PRN 01/23/21 12/02/24 Rx aerosol inhaler (Ventolin HFA) shortness of breath #8.5 grams pseudoephedrine HCl 120 mg 120 mg PO BID PRN Nasal Congestion 05/24/22 12/02/24 History tablet,extended release (Sudafed 12 Hour) escitalopram oxalate 5 mg tablet 5 mg PO DAILY #90 tabs 01/14/24 12/02/24 Rx diltiazem HCl 240 mg 240 mg PO QAM #90 caps 02/05/24 12/02/24 Rx capsule,extended release 24 hr (Cartia XT) topiramate 50 mg tablet 50 mg PO HS chronic migraine #90 02/05/24 12/02/24 Rx tabs rosuvastatin 10 mg tablet 10 mg PO DAILY #90 tabs 02/27/24 12/02/24 Rx benzonatate 100 mg capsule 100 mg PO TID PRN cough #30 caps 06/04/24 12/02/24 Rx eajfrcazpg-lsoqptiasvrxt-gtbrzhym See Rx Instructions PO Q8H PRN 06/04/24 12/02/24 Rx 50 mg-300 mg-40 mg capsule headache #10 Tabs (Fioricet) fluticasone propionate 50 1 spray intranasal BID PRN Nasal 06/04/24 12/02/24 Rx mcg/actuation nasal Congestion #16 grams spray,suspension (Flonase Allergy Relief) mirabegron 50 mg tablet,extended 50 mg PO .QOD 06/04/24 12/02/24 History release 24 hr (Myrbetriq) potassium chloride 20 mEq 40 meq (2 x 20 mEq) PO DAILY #180 06/11/24 12/02/24 Rx tablet,extended release tabs pantoprazole 40 mg tablet,delayed 40 mg PO DAILY #90 tabs 07/14/24 12/02/24 Rx release levothyroxine 25 mcg tablet 25 mcg PO QAM #90 tabs 07/22/24 12/02/24 Rx metoprolol tartrate 50 mg tablet 50 mg PO BID #180 tabs 07/30/24 12/02/24 Rx furosemide 40 mg tablet 40 mg PO QAM 09/28/24 12/02/24 History zolpidem 10 mg tablet 10 mg PO HS PRN insomnia #30 tabs 09/28/24 12/02/24 Rx warfarin 2 mg tablet 2 mg PO QDD 10/28/24 12/02/24 History Patient History Medical History (Updated 12/02/24 @ 23:49 by Mustapha Serrano, DO) Cerebrovascular accident (CVA) (02/2023) subacute occipital infarct seen on MRI Rheumatic heart disease s/p [place] AVR/MVR (2011) Surgical History (Updated 08/31/24 @ 13:19 by Niharika Everett MD, PhD) Status post right knee replacement (06/2022) History of esophagogastroduodenoscopy (EGD) History of bilateral tubal ligation Hx of hemorrhoidectomy History of colonoscopy History of cardioversion x2 History of cardiac cath 2011 > no stents S/P aortic valve replacement (2011) Status post arthroscopic partial medial meniscectomy right knee History of cataract surgery B/L S/P MVR (mitral valve replacement) (2012) Family History Mother Atrial fibrillation Father Myocardial infarction Grandfather (Maternal) Colorectal cancer Sister Lung cancer Other No family history of adverse response to anesthesia Denies family history of Ovarian cancer Prostate cancer Diabetes Breast cancer Social History Smoking Status: Never smoker Second Hand Exposure: No; Do You Dip or Chew Tobacco: No; Hx Alcohol Use: No Hx Substance Use: No Preferred Language: Bengali Communication Ability: Effective Visual Impairment: No Limitations Hearing Ability: Normal Arresting Gear Operator Required: No Beliefs That Will Affect Care: None marital status: Current Living Situation: Alone and Spouse current occupational status: retired 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 Physical Exam Constitutional: WD/WN, vitals as above Respiratory: normal respiratory effort, lungs clear to auscultation Cardiovascular: Rate/Rhythm: regular rate Gastrointestinal (Abdomen): + pain to palpation of upper abd No rebound or guarding Skin: no rashes, warm and dry Results & Data Vital Signs (Past 12 Hours) Vital Signs Temp Pulse Pulse Resp BP Pulse Ox O2 Del Method 12/03/24 07:56 97.9 F 75 18 113/70 96 Room Air 12/03/24 03:08 98.6 F 67 18 97/65 L 98 Room Air 12/02/24 22:52 78 12/02/24 22:42 Room Air 12/02/24 22:30 98.8 F 70 18 140/70 99 Room Air 12/02/24 21:17 59 L 16 12/02/24 20:59 67 22 95 12/02/24 20:44 70 21 94 Laboratory Results 09/12/25 09/11/25 09/11/25 Range/Units 05:51 23:45 19:26 WBC 12.15 H (4.8-10.8) K/ul RBC 4.37 (4.20-5.40) M/uL Hgb 11.5 L 12.2 (12.0-16.0) g/dl Hct 35.9 L 39.0 (37.0-47.0) % MCV 82.2 (80.0-100.0) fL MCH 26.3 (25.0-34.0) pg MCHC 32.0 (32.0-36.0) g/dL RDW Std Deviation 41.2 (36.4-46.3) fL RDW Coeff of [place] 14.0 (11.5-14.5) % Plt Count 146 (130-400) K/uL MPV 10.3 (9.4-12.4) fL Immature Gran % (Auto) 0.4 % Neut % (Auto) 72.0 % Lymph % (Auto) 15.0 % [place] % (Auto) 10.6 % Eos % (Auto) 1.6 % Baso % (Auto) 0.4 % Neut # (Auto) 8.75 H (1.40-6.50) K/uL Lymph # (Auto) 1.82 (1.20-3.40) K/uL [place] # (Auto) 1.29 H (0.11-0.59) K/uL Eos # (Auto) 0.19 (0.00-0.50) K/uL Baso # (Auto) 0.05 (0.00-0.20) K/uL Immature Gran # (Auto) 0.05 (0.01-0.20) K/uL PT (9.0-12.0) Seconds INR (0.9-1.1) APTT (21-31) Seconds PTT Ratio Sodium 137 (136-145) mmol/L Potassium 3.6 (3.5-5.1) mmol/L Chloride 108 H (98-107) mmol/L Carbon Dioxide 23 (21-32) mmol/L Anion Gap 6 (3-11) BUN 14 (6-23) mg/dl Creatinine 0.99 (0.6-1.2) mg/dl Est Cr Clr Drug Dosing 45.4 ml/min eGFR 58.73 BUN/Creatinine Ratio 14.1 (10-20) Glucose 88 (70-99(Fasting)) mg/dl Lactate 0.9 (0.4-2.0) mmol/L Calcium 8.8 (8.6-10.3) mg/dl Magnesium 1.8 (1.7-2.4) mg/dl Total Bilirubin 1.2 H (0.2-1.0) mg/dl AST 14 (13-39) U/L ALT 6 L (7-52) U/L Alkaline Phosphatase 46 (34-104) U/L Troponin I High Sens (0-14) pg/ml Total Protein 6.3 (6.0-8.3) gm/dl Albumin 3.4 (3.4-5.0) gm/dl Globulin 2.9 (2.5-4.0) gm/dl Albumin/Globulin Ratio 1.2 (0.9-2) Lipase (11-82) U/L Procalcitonin (0-0.5) ng/ml Blood Type Antibody Screen 12/02/24 Range/Units 15:41 WBC 18.96 H (4.8-10.8) K/ul RBC 5.07 (4.20-5.40) M/uL Hgb 13.9 (12.0-16.0) g/dl Hct 41.6 (37.0-47.0) % MCV 82.1 (80.0-100.0) fL MCH 27.4 (25.0-34.0) pg MCHC 33.4 (32.0-36.0) g/dL RDW Std Deviation 41.1 (36.4-46.3) fL RDW Coeff of [place] 13.8 (11.5-14.5) % Plt Count 182 (130-400) K/uL MPV 10.5 (9.4-12.4) fL Immature Gran % (Auto) 0.5 % Neut % (Auto) 82.5 % Lymph % (Auto) 8.2 % [place] % (Auto) 8.2 % Eos % (Auto) 0.3 % Baso % (Auto) 0.3 % Neut # (Auto) 15.65 H (1.40-6.50) K/uL Lymph # (Auto) 1.55 (1.20-3.40) K/uL [place] # (Auto) 1.56 H (0.11-0.59) K/uL Eos # (Auto) 0.05 (0.00-0.50) K/uL Baso # (Auto) 0.05 (0.00-0.20) K/uL Immature Gran # (Auto) 0.10 (0.01-0.20) K/uL PT 32.9 H (9.0-12.0) Seconds INR 3.4 H (0.9-1.1) APTT 54 H (21-31) Seconds PTT Ratio 2.0 Sodium 136 (136-145) mmol/L Potassium 3.4 L (3.5-5.1) mmol/L Chloride 104 (98-107) mmol/L Carbon Dioxide 22 (21-32) mmol/L Anion Gap 10 (3-11) BUN 16 (6-23) mg/dl Creatinine 1.08 (0.6-1.2) mg/dl Est Cr Clr Drug Dosing 42.8 ml/min eGFR 52.90 BUN/Creatinine Ratio 14.8 (10-20) Glucose 108 H (70-99(Fasting)) mg/dl Lactate (0.4-2.0) mmol/L Calcium 9.2 (8.6-10.3) mg/dl Magnesium 1.8 (1.7-2.4) mg/dl Total Bilirubin 1.4 H (0.2-1.0) mg/dl AST 18 (13-39) U/L ALT 8 (7-52) U/L Alkaline Phosphatase 58 (34-104) U/L Troponin I High Sens 9.6 (0-14) pg/ml Total Protein 7.7 (6.0-8.3) gm/dl Albumin 4.1 (3.4-5.0) gm/dl Globulin 3.6 (2.5-4.0) gm/dl Albumin/Globulin Ratio 1.1 (0.9-2) Lipase 34 (11-82) U/L Procalcitonin 0.17 (0-0.5) ng/ml Blood Type A Negative Antibody Screen NEGATIVE PG Care Time/CCT Total # of Minutes Spent Total Time Spent with Patient: Total time spent is greater than 50% in coordination of care (as documented) at patient's floor/unit and/or counseling patient: Coding Level of Care Code 96267 INT INP/OBS CARE Diagnoses Proctocolitis K52.9
--- NOTE | 2024-12-03 08:39 | Hospitalist Progress Note ---
Date of Service December 03, 2024 Assessment & Plan (1) Lower GI bleed: (2) Colitis: (3) Acute proctitis: (4) Hypokalemia due to excessive gastrointestinal loss of potassium: (5) Dehydration, mild: Plan Patient is a 79-year-old female with past medical history of rheumatic heart disease s/p mitral valve replacement and aortic valve replacement on warfarin, A-fib, diastolic HF, GERD, HLD, HTN. Patient presented due to several episodes of bright red blood in stool since Friday night found to have ascending colitis and proctitis on CT. Hgb is stable at 13.9. She was admitted for IV antibiotics and LGIB workup. #LGIB/ascending colitis/proctitis Clinically presented with several episodes of hematochezia over the previous 5 days CTA/P: Ascending colitis, possible mild proctitis USgallbladder: Cholelithiasis without cholecystitis, possible mild right hydro and small right renal stone subsequently ruled out on CTA/P Leukocytosis of 18 on admission, negative PCT/lactate. Hemoglobin stable. Baseline hemoglobin around 1213. Hemoglobin on admission 12.2, repeat post fluids . - 2020 colonoscopy with 4 polyps, nonbleeding hemorrhoids, EGD normal Zosyn continued Blood cultures pending, NGTD Protonix 40 mg IV twice daily continued pending serial exam however BUN is not elevated, and there has not been any melena suggestive of upper GI bleed. N.p.o. Warfarin held on admission. Last dose 12/01/2024, INR 3.4. Reversal was not indicated at time of admission as she was hemodynamically stable C. difficile, stool studies pending Seen by GI. Continue antibiotics. Will follow diagnostic studies. Likely infectious etiology. Anticipate outpatient colonoscopy in 6 to 8 weeks. Appreciate recommendations Volume contraction Patient appeared hemoconcentrated, dry mucous membranes, several days of diuretic use with poor p.o. intake Lasix was held Creatinine baseline of approximately 1, 1.08 on admission. No HELEN History of right bundle branch block, HFpEF without acute exacerbation on admission Echo 01/2024: EF 50-55%, mildly dilated RV. Trace AI, trace MR, aortic valve and mitral valve gradients within expected range. Diuretics temporarily held Daily weights No hypoxia S/p aortic and mitral valve replacement 2011, on warfarin. Last echo 2023 with acceptable gradients Cardiology was consulted on admission anticoagulation reviewed Per chart review patient does have a [place] AVR/MVR mechanical valve. This requires ongoing anticoagulation with goal INR 2.53.5. As her bleeding is minimal, likely with infectious cause, and is improving and INR is downtrending today within therapeutic range will resume warfarin Atrial fibrillation Metoprolol, diltiazem on admission for transient hypotension S/p electrolyte and fluid replacement Will resume metoprolol due to risk of beta-tyra withdrawal and tachyarrhythmia, and if BP remains stable subsequently can resume diltiazem Hyperlipidemia: Aspirin/statin resumed Hypothyroidism: Synthroid resumed Anxiety/depression: Escitalopram resumed VTE prophylaxis: SCDs while undergoing evaluation for hematochezia Disposition: PCU Admission and Anticipated Discharge Date Admission Date: December 02, 2024 Subjective Claudio seen at the bedside. Has some diffuse lower abdominal discomfort, improved today compared to prior. She notes that she has had some discomfort in bright red blood in her bowel movements for a couple of days but this seems to be a little bit better today compared to prior. She denies chest pain or chest pressure. She does have 2 mechanical valves. Physical Exam Physical Exam: General: A&Ox3. NAD. Cooperative. HEENT: Atraumatic, normocephalic. Vision and hearing grossly intact. Pulm: CTAB A&P. -wheezes, -rales, -rhonchi. Symmetrical chest rise. No increase in work of breathing. No respiratory distress. Cardiac: RRR, mechanical systolic click. Radial pulses intact and symmetrical. Abdominal: Mildly tender in the lower quadrant bilaterally, no rebound/guarding. Soft. Extremities: Warm, dry Results & Data Results & Data Vital Signs (Past 12 Hours) Vital Signs Temp Pulse Pulse Resp BP Pulse Ox O2 Del Method 12/03/24 07:56 36.6 C 75 18 113/70 96 Room Air 12/03/24 03:08 37.0 C 67 18 97/65 L 98 Room Air 12/02/24 22:52 78 12/02/24 22:42 Room Air 12/02/24 22:30 37.1 C 70 18 140/70 99 Room Air 12/02/24 21:17 59 L 16 12/02/24 20:59 67 22 95 12/02/24 20:44 70 21 94 PG Care Time/CCT Total # of Minutes Spent Total Time Spent with Patient: Total time spent is greater than 50% in coordination of care (as documented) at patient's floor/unit and/or counseling patient: Coding Level of Care Code 11714 SUB INP/OBS CARE 3/50MIN Diagnoses Lower GI bleed K92.2 Colitis K52.9 Acute proctitis K62.89 Hypokalemia due to excessive gastrointestinal loss of potassium E87.6 Dehydration, mild E86.0
[2024-12-03 10:12] LABS: Appearance Urine Clear (Clear); Bacteria Urine Automated None Seen (None Seen); Cast Urine Automated 0-2 /lpf (0-2); Glucose Urine UA Negative (Negative); RBC Urine Automated 0-2 /hpf (0-2)
--- NOTE | 2024-12-03 10:41 | Cardiology Consultation ---
Date of Consultation December 03, 2024 Assessment & Plan (1) Lower GI bleed: --proctocolitis, on abx 2. History of Rheumatic heart disease status post mechanical AVR, MVR-- on anticoagulation (INR goal 2.5-3.5) 3. Atrial fibrillation --[id number] 5 4. HFpEF 5. Hypertension Patient admitted with GI bleeding felt to be secondary to infectious colitis. Symptoms improving with antibiotics, patient reports significantly less blood in her stool this AM. Hgb remains stable, 12.1 this AM. Pending repeat INR recommend resuming her warfarin with goal INR 2.5-3.5 given her mechanical valves. Continue to monitor hgb. GI recommending outpatient colonoscopy and she will require Lovenox bridging for that procedure. She remains in rate controlled, asymptomatic afib. Agree with resuming usual dose of metoprolol. On exam today appears well perfused without signs of heart failure. Thank you for allowing us to participate in the care of this patient. Supervising Physician Co-Signing Physician Notes Agree with assessment and plan as outlined by BETSY Chand. Mechanical MVR/AVR. High thromboembolic risk. Minimal, low-risk bleeding currently. Recommend restarting coumadin. Continued INR management with our office Will lovenox bridge prior to outpatient colonoscopy. History of Present Illness Attending Physician: Rubin Galan MD History of Present Illness Mrs. Banuelos is a very pleasant 79 year-old woman with a history of rheumatic heart disease status post mechanical AVR and MVR in 2011 (Dr. Soriano, [facility], [address] [place] mitral, [address] [place] [place] Aortic), persistent atrial fibrillation, RBBB, hypertension, hyperlipidemia. She sukhwinder being seen today in consultation in the setting of GI bleeding. Patient admitted yesterday with GI bleeding. Since Friday morning has noticed bright red bleeding with bowel movements. Also having right lower quadrant abdominal pain. CT scan showing colitis/proctitis. WBC elevated. Hgb on admission 13.9, this morning 11.5. She has seen GI, they suspect infectious etiology and she is being treated with antibiotics. They plan to perform outpatient colonoscopy 6-8 weeks. Had a bowel movement this AM with significantly less blood than prior. Abdominal pain is improving as well. No fevers. No chest pain, dyspnea, orthopnea, PND, palpitations, lightheadedness or syncope. No history of GI bleeding. She is on anticoagulation with warfarin in the setting of mechanical AVR and MVR as well as atrial fibrillation. Goal INR is 2.5-3.5. Warfarin has been held since admission. INR yesterday morning 3.4 HS Troponin negative. ECG atrial fibrillation, RBBB no acute ST changes Prior cardiac studies: Echo 01/2024: Mild LVH, EF 50%, mildly dilated RV with borderline reduced function. Mechanical AVR with normal gradients, trace AI, mechanical MVR with normal gradients, trace MR. Normal RA/PA Echo 04/2021: LVEF 55%, mildly dilated RV with borderline reduced function. AVR with normal gradients, trace AI, MVR with normal gradients, trace MR. Normal RA/PA Echo 10/2018: Mild LVH, EF 45 to 50%, RV function mildly reduced, well-func tioning mechanical AVR, MVR, normal PASP Event monitor 09/2018: Persistent AF, heart rates primarily 60 to 70s, peak 110s. Occasional pauses while sleeping. Allergies Allergy/AdvReac Type Severity Reaction Status Date / Time trazodone AdvReac Intermediate Nightmares Verified 12/02/24 17:34 Home Medications Medication Instructions Recorded Confirmed Type aspirin 81 mg tablet,delayed 81 mg PO QAM 09/08/20 12/02/24 History release cholecalciferol (vitamin D3) 25 1,000 units PO QAM 09/08/20 12/02/24 History mcg (1,000 unit) capsule albuterol sulfate 90 mcg/actuation 2 puff inhalation Q4H PRN 01/23/21 12/02/24 Rx aerosol inhaler (Ventolin HFA) shortness of breath #8.5 grams pseudoephedrine HCl 120 mg 120 mg PO BID PRN Nasal Congestion 05/24/22 12/02/24 History tablet,extended release (Sudafed 12 Hour) escitalopram oxalate 5 mg tablet 5 mg PO DAILY #90 tabs 01/14/24 12/02/24 Rx diltiazem HCl 240 mg 240 mg PO QAM #90 caps 02/05/24 12/02/24 Rx capsule,extended release 24 hr (Cartia XT) topiramate 50 mg tablet 50 mg PO HS chronic migraine #90 02/05/24 12/02/24 Rx tabs rosuvastatin 10 mg tablet 10 mg PO DAILY #90 tabs 02/27/24 12/02/24 Rx benzonatate 100 mg capsule 100 mg PO TID PRN cough #30 caps 06/04/24 12/02/24 Rx [id number]-dpvqexdeespnw-[id number] See Rx Instructions PO Q8H PRN 06/04/24 12/02/24 Rx 50 mg-300 mg-40 mg capsule headache #10 Tabs (Fioricet) fluticasone propionate 50 1 spray intranasal BID PRN Nasal 06/04/24 12/02/24 Rx mcg/actuation nasal Congestion #16 grams spray,suspension (Flonase Allergy Relief) mirabegron 50 mg tablet,extended 50 mg PO .QOD 06/04/24 12/02/24 History release 24 hr (Myrbetriq) potassium chloride 20 mEq 40 meq (2 x 20 mEq) PO DAILY #180 06/11/24 12/02/24 Rx tablet,extended release tabs pantoprazole 40 mg tablet,delayed 40 mg PO DAILY #90 tabs 07/14/24 12/02/24 Rx release levothyroxine 25 mcg tablet 25 mcg PO QAM #90 tabs 07/22/24 12/02/24 Rx metoprolol tartrate 50 mg tablet 50 mg PO BID #180 tabs 07/30/24 12/02/24 Rx furosemide 40 mg tablet 40 mg PO QAM 09/28/24 12/02/24 History zolpidem 10 mg tablet 10 mg PO HS PRN insomnia #30 tabs 09/28/24 12/02/24 Rx warfarin 2 mg tablet 2 mg PO QDD 10/28/24 12/02/24 History Patient History Medical History (Updated 12/02/24 @ 23:49 by Mustapha Serrano, DO) Cerebrovascular accident (CVA) (02/2023) subacute occipital infarct seen on MRI Rheumatic heart disease s/p [facility] AVR/MVR (2011) Surgical History (Updated 08/31/24 @ 13:19 by Niharika Everett MD, PhD) Status post right knee replacement (06/2022) History of esophagogastroduodenoscopy (EGD) History of bilateral tubal ligation Hx of hemorrhoidectomy History of colonoscopy History of cardioversion x2 History of cardiac cath 2011 > no stents S/P aortic valve replacement (2011) Status post arthroscopic partial medial meniscectomy right knee History of cataract surgery B/L S/P MVR (mitral valve replacement) (2012) Family History Mother Atrial fibrillation Father Myocardial infarction Grandfather (Maternal) Colorectal cancer Sister Lung cancer Other No family history of adverse response to anesthesia Denies family history of Ovarian cancer Prostate cancer Diabetes Breast cancer Social History Smoking Status: Never smoker Second Hand Exposure: No; Do You Dip or Chew Tobacco: No; Hx Alcohol Use: No Hx Substance Use: No Preferred Language: Luxembourger Communication Ability: Effective Visual Impairment: No Limitations Hearing Ability: Normal Aluminum Polisher Required: No Beliefs That Will Affect Care: None marital status: Current Living Situation: Alone and Spouse current occupational status: retired 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 Vascular: 2+ radial Abdomen: Soft, nontender Extremities: Well perfused, Trace pretibial edema Neuro: Nonfocal Psych: Alert orient x3, normal affect and mood Results & Data Vital Signs (Past 12 Hours) Vital Signs Temp Pulse Pulse Resp BP Pulse Ox O2 Del Method 12/03/24 07:56 36.6 C 75 18 113/70 96 Room Air 12/03/24 07:30 Room Air 12/03/24 03:08 37.0 C 67 18 97/65 L 98 Room Air 12/02/24 22:52 78 12/02/24 22:42 Room Air 12/02/24 22:30 37.1 C 70 18 140/70 99 Room Air Laboratory Results Laboratory Results - last 24 hr 12/02/24 12/02/24 12/02/24 15:41 19:26 23:45 WBC 18.96 H RBC 5.07 Hgb 13.9 12.2 Hct 41.6 39.0 MCV 82.1 MCH 27.4 MCHC 33.4 RDW Std Deviation 41.1 RDW Coeff of [place] 13.8 Plt Count 182 MPV 10.5 Immature Gran % (Auto) 0.5 Neut % (Auto) 82.5 Lymph % (Auto) 8.2 Clark % (Auto) 8.2 Eos % (Auto) 0.3 Baso % (Auto) 0.3 Neut # (Auto) 15.65 H Lymph # (Auto) 1.55 Clark # (Auto) 1.56 H Eos # (Auto) 0.05 Baso # (Auto) 0.05 Immature Gran # (Auto) 0.10 PT 32.9 H INR 3.4 H APTT 54 H PTT Ratio 2.0 Sodium 136 Potassium 3.4 L Chloride 104 Carbon Dioxide 22 Anion Gap 10 BUN 16 Creatinine 1.08 Est Cr Clr Drug Dosing 42.8 eGFR 52.90 BUN/Creatinine Ratio 14.8 Glucose 108 H Lactate 0.9 Calcium 9.2 Magnesium 1.8 Total Bilirubin 1.4 H AST 18 ALT 8 Alkaline Phosphatase 58 Troponin I High Sens 9.6 Total Protein 7.7 Albumin 4.1 Globulin 3.6 Albumin/Globulin Ratio 1.1 Lipase 34 Procalcitonin 0.17 Urine Color Urine Appearance Urine pH Ur Specific [place] Urine Protein Urine Glucose (UA) Urine Ketones Urine Blood Urine Nitrite Urine Bilirubin Urine Urobilinogen Ur Leukocyte Esterase Urine WBC (Auto) Urine RBC (Auto) U Hyaline Cast (Auto) U Epithel Cells (Auto) Urine Bacteria (Auto) Urine Comment Blood Type A Negative Antibody Screen NEGATIVE 12/03/24 12/03/24 12/03/24 05:51 10:33 Unknown WBC 12.15 H RBC 4.37 Hgb 11.5 L 12.1 Hct 35.9 L 36.4 L MCV 82.2 MCH 26.3 MCHC 32.0 RDW Std Deviation 41.2 RDW Coeff of [place] 14.0 Plt Count 146 MPV 10.3 Immature Gran % (Auto) 0.4 Neut % (Auto) 72.0 Lymph % (Auto) 15.0 Clark % (Auto) 10.6 Eos % (Auto) 1.6 Baso % (Auto) 0.4 Neut # (Auto) 8.75 H Lymph # (Auto) 1.82 Clark # (Auto) 1.29 H Eos # (Auto) 0.19 Baso # (Auto) 0.05 Immature Gran # (Auto) 0.05 PT Pending INR Pending APTT PTT Ratio Sodium 137 Potassium 3.6 Chloride 108 H Carbon Dioxide 23 Anion Gap 6 BUN 14 Creatinine 0.99 Est Cr Clr Drug Dosing 45.4 eGFR 58.73 BUN/Creatinine Ratio 14.1 Glucose 88 Lactate Calcium 8.8 Magnesium 1.8 Total Bilirubin 1.2 H AST 14 ALT 6 L Alkaline Phosphatase 46 Troponin I High Sens Total Protein 6.3 Albumin 3.4 Globulin 2.9 Albumin/Globulin Ratio 1.2 Lipase Procalcitonin Urine Color Yellow Urine Appearance Clear Urine pH 7.0 Ur Specific [place] 1.035 H Urine Protein Negative Urine Glucose (UA) Negative Urine Ketones Negative Urine Blood Trace H Urine Nitrite Negative Urine Bilirubin Negative Urine Urobilinogen Negative Ur Leukocyte Esterase 1+ H Urine WBC (Auto) 11-20 H Urine RBC (Auto) 0-2 U Hyaline Cast (Auto) 0-2 U Epithel Cells (Auto) 3-5 H Urine Bacteria (Auto) None Seen Urine Comment Blood Type Antibody Screen PG Care Time/CCT Total # of Minutes Spent Total Time Spent with Patient: Total time spent is greater than 50% in coordination of care (as documented) at patient's floor/unit and/or counseling patient: Coding Level of Care Code 34287 IN/OBS CONSULT LVL 2,35M Diagnoses Lower GI bleed K92.2
[2024-12-03 11:04] LABS: Hematocrit (blood only) 36.4 % (37.0-47.0); Hemoglobin 12.1 g/dl (12.0-16.0)
[2024-12-03] MEDS: METOPROLOL TARTRATE 50 MG TAB PO SCH (11:05)
[2024-12-03] MEDS: MAGNESIUM OXIDE 400 MG TAB PO SCH (11:05)
[2024-12-03] MEDS: POTASSIUM CHLORIDE CRTAB 20 MEQ TABCR PO SCH (11:06)
[2024-12-03 11:28] LABS: INR 3.3 (0.9-1.1); Prothrombin Time 32.4 Seconds (9.0-12.0)
[2024-12-03] MEDS: WARFARIN SOD 2 MG TAB PO SCH (16:56)
[2024-12-03 17:21] LABS: Hematocrit (blood only) 37.1 % (37.0-47.0); Hemoglobin 11.7 g/dl (12.0-16.0)
--- NOTE | 2024-12-03 22:42 | Electrocardiogram Report ---
Test Reason : Blood Pressure : */* mmHG Vent. Rate : 98 BPM Atrial Rate : * BPM P-R Int : * ms QRS Dur : 152 ms QT Int : 412 ms P-R-T Axes : * 20 23 degrees QTcB Int : 525 ms Atrial fibrillation Right bundle branch block Abnormal ECG When compared with ECG of 12-Jan-2024 14:24, T wave inversion no longer evident in Inferior leads T wave amplitude has increased in Lateral leads Confirmed by Logan Garza ([id number]) on 12/03/2024 10:42:05 PM Referred By: Mickie Ford Confirmed By: Logan Garza
[2024-12-04 00:04] LABS: Hematocrit (blood only) 38.5 % (37.0-47.0); Hemoglobin 12.5 g/dl (12.0-16.0)
[2024-12-04] MEDS: PROCHLORPERAZINE 5 MG in SYRINGE 4 ML IV PRN (01:44)
[2024-12-04] MEDS: ZOLPIDEM TARTRATE 5 MG TAB PO PRN (01:49)
[2024-12-04] MEDS: LEVOTHYROXINE SODIUM 25 MCG TABLET PO SCH (06:04)
[2024-12-04 06:58] LABS: Hematocrit (blood only) 37.0 % (37.0-47.0); Hemoglobin 12.2 g/dl (12.0-16.0); Immature Granulocytes # (auto) 0.03 K/uL (0.01-0.20); Immature Granulocytes % (auto) 0.4 %; Mean Corpuscular Hemoglobin 27.4 pg (25.0-34.0); Mean Corpuscular Volume 83.1 fL (80.0-100.0); Platelet Count 174 K/uL (130-400); RDW Standard Deviation 42.3 fL (36.4-46.3); Red Blood Count 4.45 M/uL (4.20-5.40); White Blood Count 8.19 K/ul (4.8-10.8)
[2024-12-04 07:24] LABS: Anion Gap 7.0 (3-11); Blood Urea Nitrogen 9.0 mg/dl (6-23); Calcium 8.9 mg/dl (8.6-10.3); Carbon Dioxide 21.0 mmol/L (21-32); Chloride 110.0 mmol/L (98-107); Creatinine Clr Calc Pharmacy 49.5 ml/min; Glucose 82.0 mg/dl (70-99(Fasting)); Potassium 3.6 mmol/L (3.5-5.1); Sodium 138.0 mmol/L (136-145)
[2024-12-04 08:10] VITALS: RESP 18
[2024-12-04] MEDS: ESCITALOPRAM OXALATE 10 MG TAB PO SCH (08:24)
[2024-12-04] MEDS: ROSUVASTATIN CALCIUM 10 MG TAB PO SCH (08:24)
[2024-12-04 09:16] LABS: INR 3.2 (0.9-1.1); Prothrombin Time 31.1 Seconds (9.0-12.0)
--- NOTE | 2024-12-04 11:10 | Discharge Summary ---
Discharge Summary Date of Service December 04, 2024 Principal Dx & Hospital Course #1 = Principal Diagnosis (1) Lower GI bleed: (2) Colitis: (3) Acute proctitis: (4) Hypokalemia due to excessive gastrointestinal loss of potassium: (5) Dehydration, mild: Plan Patient is a 79-year-old female with past medical history of rheumatic heart disease s/p mitral valve replacement and aortic valve replacement on warfarin, A-fib, diastolic HF, GERD, HLD, HTN. Patient presented due to several episodes of bright red blood in stool since Friday night found to have ascending colitis and proctitis on CT. Hgb is stable at 13.9. She was admitted for IV antibiotics and LGIB workup. 79-year-old female who presented with hematochezia and showed evidence of proctitis/colitis. She was suspected to have infectious colitis leading to mild ischemic colitis. Hemoglobin was stable, vital signs were stable, and clinically her bleeding improved during admission with supportive care. She was discharged to complete 1 week of Cipro/Flagyl. She was continued on warfarin as she did not have hemodynamically significant bleeding and has a history of [place] MVR/AVR To do as outpatient: 1. Follow-up CBC and INR within 1 week 2. Continue Augmentin 875-125 mg twice daily for 1 week. 3. Routine follow-up with PCP 4. Outpatient colonoscopy in approximately 6-8 weeks #LGIB/ascending colitis/proctitis Clinically presented with several episodes of hematochezia over the previous 5 days CTA/P: Ascending colitis, possible mild proctitis USgallbladder: Cholelithiasis without cholecystitis, possible mild right hydro and small right renal stone subsequently ruled out on CTA/P Leukocytosis of 18 on admission, negative PCT/lactate. Hemoglobin stable. Baseline hemoglobin around 1213. Stable during admission - 2020 colonoscopy with 4 polyps, nonbleeding hemorrhoids, EGD normal Zosyn continued Blood cultures pending, NGTD Protonix 40 mg IV twice daily continued pending serial exam however BUN is not elevated, and there has not been any melena suggestive of upper GI bleed. N.p.o. Warfarin held on admission. Last dose 12/01/2024, INR 3.4. Reversal was not indicated at time of admission as she was hemodynamically stable. Subsequently resumed, she has a history of mechanical valve C. difficile, stool studies were ordered and were negative Seen by GI. Agree with antibiotics and fluid support. Suspect most likely infectious colitis leading to some ischemic colitis. Progressed well. Can continue Bentyl 3 times daily for abdominal cramping, transition to oral antibiotics on discharge, and can follow-up in 6 to 8 weeks for outpatient colonoscopy. - Was initially recommended for Cipro/Flagyl however this was switched to to Augmentin for similar coverage but more favorable interaction given her warfarin use and increased INR goal and increased risk of bleeding due to her mechanical valve status Volume contraction Patient appeared hemoconcentrated, dry mucous membranes, several days of diuretic use with poor p.o. intake Lasix was held Creatinine baseline of approximately 1, 1.08 on admission. No HELEN History of right bundle branch block, HFpEF without acute exacerbation on admission Echo 01/2024: EF 50-55%, mildly dilated RV. Trace AI, trace MR, aortic valve and mitral valve gradients within expected range. Diuretics temporarily held Daily weights No hypoxia S/p aortic and mitral valve replacement 2011, on warfarin. Last echo 2023 with acceptable gradients Per chart review patient does have a [place] AVR/MVR mechanical valve. This requires ongoing anticoagulation with goal INR 2.53.5. As her bleeding is minimal, likely with infectious cause, and is improving and INR is downtrending today within therapeutic range warfarin was resumed / Atrial fibrillation Metoprolol, diltiazem on admission for transient hypotension. Resumed on discharge, vitals normal S/p electrolyte and fluid replacement Hyperlipidemia: Aspirin/statin resumed Hypothyroidism: Synthroid resumed Anxiety/depression: Escitalopram resumed Admission HPI Per Admitting Provider Patient is a 79-year-old female with past medical history of rheumatic heart disease s/p mitral valve replacement and aortic valve replacement on warfarin, A-fib, diastolic HF, GERD, HLD, HTN. Patient presented due to several episodes of bright red blood in stool since Friday night found to have ascending colitis and proctitis on CT. Hgb is stable at 13.9. She is being admitted for IV antibiotics and LGIB workup. Patient seen at bedside. She stated that Friday night she had 1 episode of bright red blood in her stool filling the toilet, she felt as though it was a lot of blood. She also vomited 1 time but denies any hematemesis. She had 2 episodes of bleeding on Friday, 2 on Friday, and 1 today. She stated since Friday she has not eaten or drinking much because she is concerned about the blood in her stool. She stated her stools are formed, denies any diarrhea or constipation. She has also had right lower quadrant abdominal pain since this started. She also feels weak and lightheaded. She denies any chest pain, shortness of breath. She denies any frequent NSAID use. She stated her last colonoscopy was approximately 6 years ago and she also had an EGD at the same time. Records reviewed and colonoscopy revealed 4 polyps that were removed, diverticula, nonbleeding internal hemorrhoids. EGD revealed no abnormalities. She denies any nicotine or alcohol use. She does not use any sleep aids for noted CARO in her chart. She took her morning medications today but is due for her evening medications which include warfarin, last dose of warfarin the evening of 12/01. She wishes to be DNR/DNI. Discharge Exam Will general: A&Ox3. NAD. Cooperative. HEENT: Atraumatic, normocephalic. Vision and hearing grossly intact Pulm: CTAB A&P. -wheezes, -rales, -rhonchi. Symmetrical chest rise. No increase in work of breathing. No respiratory distress. Cardiac: RRR, sharp systolic click consistent with mechanical valve. Radial pulses intact and symmetrical. Abdominal: Nontender, nondistended, soft. BS present. Extremities: Warm and dry Discharge Plan Discharge Items Patient Disposition: Home - Self-Care Reason For Visit: COLITIS, LGIB Discharge Diagnosis: Infectious colitis, transient ischemic colitis Condition on Discharge: Good Activity: Resume your previous activity Non-emergency contact: Primary Care Provider and Chief Dispatcher Service Call non-emergency contact if: you have any medication questions, your symptoms worsen and your pain is not controlled Follow-up/Referrals: Mickie Ford MD [Primary Care Provider] - Lisa Osullivan CRNP [Nurse Practitioner] - Diet: Heart Healthy Addtl Attending Provider Instructions: You were seen in the hospital for bright red blood per rectum. You are found to have suspected infectious colitis treated with antibiotics with transient bleeding. Your blood levels were normal and stable, your vitals were stable during admission. Your anticoagulation was continued as it is critically important due to your valve replacements, and you did not show evidence of clinically significant bleeding during admission. You have been prescribed 1 week of outpatient antibiotics. Please take Augmentin 875-175 mg by mouth twice daily with food for 1 week. If you develop any new or worsening symptoms including fever, chills, sweats, chest pain, chest pressure, difficulty breathing, uncontrolled nausea/vomiting, rash, wheezing, passing out or nearly passing out, bleeding, black/bloody bowel movements, or other new or concerning symptoms please call your primary care physician, or call 911 for re-evaluation in the emergency department if you are very concerned. Pending Studies at Discharge: No Stand-Alone Forms: [facility], Sm[facility] Cessation Medications and DC Order Prescriptions: New amoxicillin-pot clavulanate 875-125 mg tablet 1 tab PO BID Qty: 14 0RF Continued warfarin 2 mg tablet 2 mg PO QDD Rx Instructions: Per [facility] furosemide 40 mg tablet 40 mg PO QAM escitalopram oxalate 5 mg tablet 5 mg PO DAILY Qty: 90 3RF topiramate 50 mg tablet 50 mg PO HS Qty: 90 3RF diltiazem HCl [Cartia XT] 240 mg capsule,extended release 24hr 240 mg PO QAM Qty: 90 3RF rosuvastatin 10 mg tablet 10 mg PO DAILY Qty: 90 3RF potassium chloride 20 mEq tablet extended release 40 meq PO DAILY Qty: 180 3RF pantoprazole 40 mg tablet,delayed release (DR/EC) 40 mg PO DAILY Qty: 90 3RF levothyroxine 25 mcg tablet 25 mcg PO QAM Qty: 90 3RF metoprolol tartrate 50 mg tablet 50 mg PO BID Qty: 180 3RF albuterol sulfate [Ventolin HFA] 90 mcg/actuation HFA aerosol inhaler 2 puff INH Q4H PRN (Reason: shortness of breath) Qty: 8.5 3RF zolpidem 10 mg tablet 10 mg PO HS PRN (Reason: insomnia) Qty: 30 5RF Myrbetriq 50 mg tablet extended release 24 hr 50 mg PO .QOD benzonatate 100 mg capsule 100 mg PO TID PRN (Reason: cough) Qty: 30 2RF fluticasone propionate [Flonase Allergy Relief] 50 mcg/actuation spray,suspension 1 spray intranasal BID PRN (Reason: Nasal Congestion) Qty: 16 1RF Rx Instructions: administer into each nostril swnserpnsc-rdfoldemolxds-hbri [Fioricet] 50-300-40 mg capsule See Rx Instructions PO Q8H PRN (Reason: headache) Qty: 10 2RF Rx Instructions: 1 tab PO every 8 hours PRN; aspirin 81 mg tablet,delayed release (DR/EC) 81 mg PO QAM cholecalciferol (vitamin D3) 1,000 unit capsule 1,000 units PO QAM pseudoephedrine HCl [Sudafed 12 Hour] 120 mg tablet extended release 120 mg PO BID PRN (Reason: Nasal Congestion) Admission Data Admit Date/Time: 12/02/24 20:13 Attending Provider: Rubin Galan Admit Provider: Amando Rowan Primary Care Provider: Mickie Ford Other Providers: Amando Rowan; Chely Kruger; John Chandra Jr Hospital Stay Data Consultations 12/02/24 19:27 ED Decision to Admit Stat 12/02/24 23:03 Consult Cardiology Routine Consult Gastroenterology Routine Diagnostic Imagining Performed 12/02/24 15:31 CT abd pelvis IV con only Stat 12/02/24 17:26 US gallbladder Stat Discharge Instructions Given to Patient (Per Discharging Provider) You were seen in the hospital for bright red blood per rectum. You are found to have suspected infectious colitis treated with antibiotics with transient bleeding. Your blood levels were normal and stable, your vitals were stable during admission. Your anticoagulation was continued as it is critically important due to your valve replacements, and you did not show evidence of clinically significant bleeding during admission. You have been prescribed 1 week of outpatient antibiotics. Please take Augmentin 875-175 mg by mouth twice daily with food for 1 week. If you develop any new or worsening symptoms including fever, chills, sweats, chest pain, chest pressure, difficulty breathing, uncontrolled nausea/vomiting, rash, wheezing, passing out or nearly passing out, bleeding, black/bloody bowel movements, or other new or concerning symptoms please call your primary care physician, or call 911 for re-evaluation in the emergency department if you are very concerned. Total Time Total Time Spent Total Time Spent (In Minutes): Time spend day of discharge 50 minutes including direct patient care, documentation, review of labs and images, and coordination of care. Coding Level of Care Code 23415 INP/OBS DISCH >30 MIN Diagnoses Lower GI bleed K92.2 Colitis K52.9 Acute proctitis K62.89 Hypokalemia due to excessive gastrointestinal loss of potassium E87.6 Dehydration, mild E86.0
[2024-12-04 11:12] LABS: Cdiff Toxin B Gene (2yr or >) Negative Cdiff Gene (Neg)
[2024-12-04 11:46] LABS: Adenovirus F 40/41 PCR Not Detected (NotDetected); Campylobacter PCR Not Detected (NotDetected); Enteroaggregative E.coli(EAEC) Not Detected (NotDetected); Shiga-like Toxin E.coli (STEC) Not Detected (NotDetected); Vibrio species PCR Not Detected (NotDetected)
[2024-12-04 12:01] VITALS: BP 115/66; PULSE 84; TEMP 97.7; O2SAT 97
== END 2024-12-04 14:15 | disposition home or self-care (01) | DRG 392 ==
LOC: ED 15:16 → INTOOBSV 20:13 → 4W 20:13 → SUATTDRO 20:13 → 4W 22:42